=== PATIENT | female | born 1940 | race Caucasian/White ===

== ENCOUNTER 2016-10-16 20:24 | Inpatient (IN) | payer MEDICARE ==
[2016-10-16 20:54] LABS: Basophils # (A) 0.1 k/uL (0-0.2); Basophils % (A) 0 %; CH 30.9; CHCM 32.2; Eosinophils # (A) 0.2 k/uL (0-0.7); Eosinophils % (A) 1 %; HCT 41.3 % (34.0-46.0); HDW 2.62; HGB 13.2 gm/dL (11.4-16.0); Luc # (Auto) 0.08; Luc % (Auto) 0; Lymphocytes # (A) 0.6 k/uL (1.0-4.8); Lymphocytes % (A) 3 %; MCH 30.9 pg (25.0-35.0); MCV 96.6 fL (80.0-100.0); Mean Platelet Volume 7.9; Monocytes # (A) 0.5 k/uL (0-1.0); Monocytes % (A) 2 %; Neutrophils # (A) 20.3 k/uL (1.3-7.7); Neutrophils % (A) 93 %; RBC 4.27 m/uL (3.80-5.40); RDW 13.5 % (11.5-15.5); WBC 21.8 k/uL (3.8-10.6); WBC (Perox) 21.76
--- NOTE | 2016-10-16 21:02 | XR ---
EXAMINATION TYPE: XR chest 2V DATE OF EXAM: 10/16/2016 8:58 PM COMPARISON: NONE HISTORY: Chest pain TECHNIQUE: Frontal and lateral views of the chest are obtained. FINDINGS: Patient is post median sternotomy. Heart may be enlarged, patient is rotated. Interstitium and central vascularity are prominent. No pneumothorax or pleural effusion. There are overlying card iac leads. IMPRESSION: Correlate for congestive heart failure. Follow-up suggested.
[2016-10-16 21:06] LABS: Calcium 9.7 mg/dL (8.4-10.2); Total Bilirubin 0.8 mg/dL (0.2-1.3); Total Protein 7.3 g/dL (6.3-8.2)
[2016-10-16 21:09] LABS: Prothrombin Time 10.5 sec (9.0-12.0)
[2016-10-16 21:17] LABS: Magnesium 1.4 mg/dL (1.6-2.3); Potassium 4.9 mmol/L (3.5-5.1)
[2016-10-16 21:24] LABS: Partial Thromboplastin Time 20.2 sec (22.0-30.0)
--- NOTE | 2016-10-16 21:27 | ED ---
General Adult HPI - General Chief complaint: Chest Pain Stated complaint: Chest pain,fever Time Seen by Provider: 10/16/16 21:00 Source: patient, EMS, RN notes reviewed Mode of arrival: EMS Limitations: no limitations - History of Present Illness Initial comments: This is a 75-year-old female who presents emergency room complaining of chest pain with some shortness of breath nausea and states it is similar to the chest pain she had when she had a heart attack and bypass surgery years ago. Patient states she is a diabetic she is hypertensive and she has high cholesterol. Patient comes in today stating that she was outside about 4:00 she started having arm pain which is chronic and then she started developing chest pain with the associated symptoms mentioned above. Patient denies any diaphoresis. Patient states she has had slight cough recently but no sputum production. Patient states she took a nitroglycerin in the ambulance 2 and it helped the chest pain considerably. Patient states currently she only has very minimal chest pain at all. Patient denies any abdominal pain. Patient denies any vomiting or diarrhea. Patient denies headache patient denies numbness weakness. Patient denies any lightheadedness dizziness or near syncopal episode. - Related Data Home Medications Medication Instructions Recorded Confirmed Cholecalciferol [Vitamin D3] 5,000 units PO DAILY 01/06/14 10/16/16 Metoprolol Tartrate [Lopressor] 100 mg PO BID 01/06/14 10/16/16 glipiZIDE [Glucotrol XL] 10 mg PO QAM 01/06/14 10/16/16 Insulin Glargine,Hum.rec.anlog 14 unit SQ QAM 04/29/16 10/16/16 [Toujeo Solostar] Losartan [Cozaar] 50 mg PO DAILY 05/25/16 10/16/16 Nitroglycerin Sl Tabs [Nitrostat] 0.4 mg SUBLINGUAL ONCE PRN 10/16/16 10/16/16 Vitamin B Complex 1 cap PO DAILY 10/16/16 10/16/16 Previous Rx's Medication Instructions Recorded Clopidogrel [Plavix] 75 mg PO DAILY #30 tab 02/04/14 Aspirin 325 mg PO DAILY #90 tab 05/26/16 Allergies Allergy/AdvReac Type Severity Reaction Status Date / Time No Known Allergies Allergy Verified 10/16/16 20:40 Review of Systems ROS Statement: Those systems with pertinent positive or pertinent negative responses have been documented in the HPI. ROS Other: All systems not noted in ROS Statement are negative. Past Medical History Past Medical History: Coronary Artery Disease (CAD), Diabetes Mellitus, Hyperlipidemia, Hypertension, Myocardial Infarction ([place]), Vascular Disorder Additional Past Medical History / Comment(s): pt states has black eye from fall a couple weeks ago Last Myocardial Infarction Date:: 2005 History of Any Multi-Drug Resistant Organisms: None Reported Past Surgical History: Cholecystectomy, Coronary Bypass/CABG, Joint Replacement , Orthopedic Surgery Additional Past Surgical History / Comment(s): Panniculectomy. Artherectomy of the right popliteal and [employer] by Dr. Delarosa on 02/03/2014. Rt knee replacement x 2.OWEN LOWER EXT RUNOFF/NATHANIEL RT COMMON FEMORAL ARTERY ANGIOGRAM 05-25-16 .RT FEM POP Past Anesthesia/Blood Transfusion Reactions: No Reported Reaction Past Psychological History: No Psychological Hx Reported Smoking Status: Never smoker Past Alcohol Use History: None Reported Additional Past Alcohol Use History / Comment(s): .... Past Drug Use History: None Reported - Past Family History Father Additional Family Medical History / Comment(s): at age 62 due to motor vehicle accident Mother Family Medical History: No Reported History Additional Family Medical History / Comment(s): PARENTS 18 MONTHS APRT BOTH IN A MVA. MOM AT AGE 58 AND DAD WAS 62 General Exam - General Exam Comments Initial Comments: GENERAL: Patient is well-developed and well-nourished. Patient is nontoxic and well- hydrated and is in mild distress. ENT: Neck is soft and supple. No significant lymphadenopathy is noted. Oropharynx is clear. Moist mucous membranes. Neck has full range of motion without eliciting any pain. EYES: The sclera were anicteric and conjunctiva were pink and moist. Extraocular movements were intact and pupils were equal round and reactive to light. Eyelids were unremarkable. PULMONARY: Unlabored respirations. Good breath sounds bilaterally. No audible rales rhonchi or wheezing was noted. CARDIOVASCULAR: There is a regular rate and rhythm without any murmurs gallops or rubs. ABDOMEN: Soft and nontender with normal bowel sounds. No palpable organomegaly was noted. There is no palpable pulsatile mass. SKIN: Skin is clear with no lesions or rashes and otherwise unremarkable. NEUROLOGIC: Patient is alert and oriented x3. Cranial nerves II through XII are grossly intact. Motor and sensory are also intact. Normal speech, volume and content. Symmetrical smile. MUSCULOSKELETAL: Normal extremities with adequate strength and full range of motion. No lower extremity swelling or edema. No calf tenderness. LYMPHATICS: No significant lymphadenopathy is noted PSYCHIATRIC: Normal psychiatric evaluation. Normal interpersonal interactions appears functionally intact in deals appropriately with others. No signs of depression. No signs of anxiety. Limitations: no limitations Course Vital Signs 10/16/16 10/16/16 10/16/16 20:27 20:47 21:46 Temperature 98 F Pulse Rate 105 H 100 100 Respiratory 20 20 20 Rate Blood Pressure 206/92 158/83 180/78 O2 Sat by Pulse 96 97 98 Oximetry Medical Decision Making - Medical Decision Making EKG shows sinus tachycardia at 111 bpm MD interval is on a 54 QRS is 86 QT interval 312 QTC is 424. Patient's EKG shows no ST segment elevation or depression. Patient's urine showed infection/started on Levaquin. Chest x-ray showed mild congestive heart today. As to the patient on Lasix as well as place some Nitropaste on the patient. Patient's troponin was mildly elevated this in association with her past history and her clinical symptoms I decided to put the patient on heparin. I spoke with Dr. Brizuela who would be the admitting physician and he accepted the admission I wrote admitting orders I consult to cardiology - Lab Data Result diagrams: 10/16/16 20:40 10/16/16 20:40 Lab Results 10/16/16 10/16/16 10/16/16 Range/Units 20:40 20:40 20:40 WBC 21.8 H (3.8-10.6) k/uL RBC 4.27 (3.80-5.40) m/uL Hgb 13.2 (11.4-16.0) gm/dL Hct 41.3 (34.0-46.0) % MCV 96.6 (80.0-100.0) fL MCH 30.9 (25.0-35.0) pg MCHC 32.0 (31.0-37.0) g/dL RDW 13.5 (11.5-15.5) % Plt Count 193 (150-450) k/uL Neutrophils % 93 % Lymphocytes % 3 % Monocytes % 2 % Eosinophils % 1 % Basophils % 0 % Neutrophils # 20.3 H (1.3-7.7) k/uL Lymphocytes # 0.6 L (1.0-4.8) k/uL Monocytes # 0.5 (0-1.0) k/uL Eosinophils # 0.2 (0-0.7) k/uL Basophils # 0.1 (0-0.2) k/uL PT (9.0-12.0) sec INR (<1.1) APTT (22.0-30.0) sec Sodium 138 (137-145) mmol/L Potassium 4.9 (3.5-5.1) mmol/L Chloride 108 H (98-107) mmol/L Carbon Dioxide 18 L (22-30) mmol/L Anion Gap 12 mmol/L BUN 46 H (7-17) mg/dL Creatinine 1.50 H (0.52-1.04) mg/dL Est GFR (MDRD) Af Amer 41 (>60 ml/min/1.73 sqM) Est GFR (MDRD) Non-Af 34 (>60 ml/min/1.73 sqM) Glucose 232 H (74-99) mg/dL Calcium 9.7 (8.4-10.2) mg/dL Magnesium 1.4 L (1.6-2.3) mg/dL Total Bilirubin 0.8 (0.2-1.3) mg/dL AST 35 (14-36) U/L ALT 34 (9-52) U/L Alkaline Phosphatase 110 (38-126) U/L Total Creatine Kinase 54 (30-135) U/L CK-MB (CK-2) 2.0 (0.0-2.4) ng/mL CK-MB (CK-2) Rel Index 3.7 Troponin I 0.066 H* (0.000-0.034) ng/mL Total Protein 7.3 (6.3-8.2) g/dL Albumin 3.9 (3.5-5.0) g/dL Urine Color Urine Appearance (Clear) Urine pH (5.0-8.0) Ur Specific Grants (1.001-1.035) Urine Protein (Negative) Urine Glucose (UA) (Negative) Urine Ketones (Negative) Urine Blood (Negative) Urine Nitrite (Negative) Urine Bilirubin (Negative) Urine Urobilinogen (<2.0) mg/dL Ur Leukocyte Esterase (Negative) Urine RBC (0-5) /hpf Urine WBC (0-5) /hpf Urine WBC Clumps (None) /hpf Ur Squamous Epith Cells (0-4) /hpf Urine Mucus (None) /hpf 10/16/16 10/16/16 Range/Units 20:40 20:40 WBC (3.8-10.6) k/uL RBC (3.80-5.40) m/uL Hgb (11.4-16.0) gm/dL Hct (34.0-46.0) % MCV (80.0-100.0) fL MCH (25.0-35.0) pg MCHC (31.0-37.0) g/dL RDW (11.5-15.5) % Plt Count (150-450) k/uL Neutrophils % % Lymphocytes % % Monocytes % % Eosinophils % % Basophils % % Neutrophils # (1.3-7.7) k/uL Lymphocytes # (1.0-4.8) k/uL Monocytes # (0-1.0) k/uL Eosinophils # (0-0.7) k/uL Basophils # (0-0.2) k/uL PT 10.5 (9.0-12.0) sec INR 1.0 (<1.1) APTT 20.2 L (22.0-30.0) sec Sodium (137-145) mmol/L Potassium (3.5-5.1) mmol/L Chloride (98-107) mmol/L Carbon Dioxide (22-30) mmol/L Anion Gap mmol/L BUN (7-17) mg/dL Creatinine (0.52-1.04) mg/dL Est GFR (MDRD) Af Amer (>60 ml/min/1.73 sqM) Est GFR (MDRD) Non-Af (>60 ml/min/1.73 sqM) Glucose (74-99) mg/dL Calcium (8.4-10.2) mg/dL Magnesium (1.6-2.3) mg/dL Total Bilirubin (0.2-1.3) mg/dL AST (14-36) U/L ALT (9-52) U/L Alkaline Phosphatase (38-126) U/L Total Creatine Kinase (30-135) U/L CK-MB (CK-2) (0.0-2.4) ng/mL CK-MB (CK-2) Rel Index Troponin I (0.000-0.034) ng/mL Total Protein (6.3-8.2) g/dL Albumin (3.5-5.0) g/dL Urine Color Light Yellow Urine Appearance Cloudy H (Clear) Urine pH 5.0 (5.0-8.0) Ur Specific Grants 1.010 (1.001-1.035) Urine Protein Trace H (Negative) Urine Glucose (UA) 3+ H (Negative) Urine Ketones Negative (Negative) Urine Blood Small H (Negative) Urine Nitrite Negative (Negative) Urine Bilirubin Negative (Negative) Urine Urobilinogen <2.0 (<2.0) mg/dL Ur Leukocyte Esterase Moderate H (Negative) Urine RBC 38 H (0-5) /hpf Urine WBC 44 H (0-5) /hpf Urine WBC Clumps Occasional H (None) /hpf Ur Squamous Epith Cells 1 (0-4) /hpf Urine Mucus Rare H (None) /hpf Critical Care Time Critical Care Time: Yes Total Critical Care Time: 35 Disposition Clinical Impression: Unstable angina pectoris, Urinary tract infection, Pulmonary edema Disposition: ADMITTED IP TO [facility] Time of Disposition: 22:18
[2016-10-16] MEDS ORDERED: MORPHINE SULFATE 2 MG/ML SYRINGE IVP ONE (21:32)
[2016-10-16 21:51] LABS: Troponin I 0.066 ng/mL (0.000-0.034)
[2016-10-16 22:03] LABS: Appearance,Urine Cloudy (Clear); Bilirubin,Urine Negative (Negative); Glucose,Urine (UA) 3+ (Negative); Ketones,Urine Negative (Negative); Leukocyte Esterase,Urine Moderate (Negative); Mucus,Urine Rare /hpf; Nitrite,Urine Negative (Negative); Particle Count 2095; Protein,Urine Trace (Negative); RBC,Urine 38 /hpf (0-5); Squamous Epithelial Cell,Urine 1 /hpf (0-4); UA Billing (MACRO vs. MICRO) MICRO; Urobilinogen,Urine <2.0 mg/dL (<2.0); WBC,Urine 44 /hpf (0-5)
[2016-10-16] MEDS ORDERED: LEVOFLOXACIN 750MG-D5W PMX 750 MG in DEXTROSE/WATER 1 150ML.BAG IVPB STA (22:14)
[2016-10-16] MEDS ORDERED: HEPARIN SODIUM,PORCINE 5,000 UNIT/ML 1 ML VIAL IV ONE (22:15)
[2016-10-16] MEDS ORDERED: NITROGLYCERIN OINT 1 INCH/GM PACKET TOPICAL STA (22:16)
[2016-10-16] MEDS ORDERED: FUROSEMIDE 10 MG/ML 2 ML VIAL IV ONE (22:16)
[2016-10-16] MEDS ORDERED: NITROGLYCERIN SL TABS 0.4 MG TAB SUBLINGUAL PRN (22:18)
[2016-10-16] MEDS: HEPARIN SODIUM,PORCINE/D5W PMX 25,000 UNIT in DEXTROSE/WATER 1 500ML.BAG IV SCH (22:47)
[2016-10-17 00:39] LABS: Creatine Kinase MB 3.3 ng/mL (0.0-2.4); Troponin I 0.677 ng/mL (0.000-0.034)
[2016-10-17 05:10] LABS: Cholesterol 247 mg/dL (<200); HDL Cholesterol 42 mg/dL (40-60); Triglycerides 220 mg/dL (<150)
[2016-10-17] MEDS: NITROGLYCERIN OINT 1 INCH/GM PACKET TOPICAL SCH ×5 (06:06→17:09)
[2016-10-17 06:39] LABS: Creatine Kinase MB 3.5 ng/mL (0.0-2.4); Troponin I 1.21 ng/mL (0.000-0.034)
[2016-10-17 07:05] LABS: Glucose,Whole Blood 191 mg/dL (75-99)
[2016-10-17] MEDS ORDERED: FUROSEMIDE 10 MG/ML 2 ML VIAL IV SCH (08:00)
--- NOTE | 2016-10-17 08:16 | P.CRDCN ---
History of Present Illness Consult date: 10/17/16 Requesting physician: Kathe Brizuela Consult reason: chest pain Chief complaint: Chest pain History of present illness: This is a pleasant 75-year-old female who follows regularly with Dr. Delarosa in the office. She has a history of coronary artery disease with prior bypass surgery in 2006 at which time she underwent a four-vessel bypass, GAY to the LAD, saphenous vein graft to the diagonal 1, saphenous vein graft to the OM1, and saphenous vein graft to the RCA. Patient also has a significant history for PAD with prior PTCA of the mid right popliteal, patient also underwent balloon angioplasty of the ostial and proximal right anterior tibial artery in April of last year. Patient has hypertension, hyperlipidemia, diabetes, and obesity. Patient presents to the hospital with symptoms of midsternal chest pressure and heaviness with radiation to the left shoulder and down the left arm. She does state she had associated nausea and felt like she had chills. She denies any diaphoresis or shortness of breath. According to the patient, she has been experiencing intermittent chest pains which were different than what she experienced yesterday. He does state that she felt as though she had a mild fever at home prior to coming in as well. EKG on arrival here showed a sinus tachycardia with minimal ST elevation in . Chest x-ray suggested mild congestive heart failure. White blood cell count on admission 21.8, hemoglobin 13.2, potassium 4.9, BUN 46, creatinine 1.5. Magnesium level I.4. BNP 4320. Cholesterol 247, triglycerides 220, HDL 42, LDL 161. Troponins 0.066, 0.677, 1.2. Blood pressure on arrival to the emergency room 206/92, heart rate 105, afebrile. 96% on room air. Urinalysis positive for UTI. Patient was given one dose of IV Lasix in the emergency room and initiated on IV Lasix every 8 hour, she was also started on IV heparin drip, as well as IV Levaquin. Patient is also on aspirin and Nitropaste. At the time of my examination this morning, patient states she feels extremely tired, generalized achiness all over. Past Medical History Past Medical History: Coronary Artery Disease (CAD), Diabetes Mellitus, Hyperlipidemia, Hypertension, Myocardial Infarction ([place]), Vascular Disorder Additional Past Medical History / Comment(s): pt states has black eye from fall a couple weeks ago Last Myocardial Infarction Date:: 2005 History of Any Multi-Drug Resistant Organisms: None Reported Past Surgical History: Cholecystectomy, Coronary Bypass/CABG, Joint Replacement , Orthopedic Surgery Additional Past Surgical History / Comment(s): Panniculectomy. Artherectomy of the right popliteal and RAG SORTER by Dr. Delarosa on 02/03/2014. Rt knee replacement x 2.OWEN LOWER EXT RUNOFF/NATHANIEL RT COMMON FEMORAL ARTERY ANGIOGRAM 05-25-16 .RT FEM POP Past Anesthesia/Blood Transfusion Reactions: No Reported Reaction Past Psychological History: No Psychological Hx Reported Smoking Status: Never smoker Past Alcohol Use History: None Reported Additional Past Alcohol Use History / Comment(s): .... Past Drug Use History: None Reported - Past Family History Father Additional Family Medical History / Comment(s): at age 62 due to motor vehicle accident Mother Family Medical History: No Reported History Additional Family Medical History / Comment(s): PARENTS 18 MONTHS APRT BOTH IN A MVA. MOM AT AGE 58 AND DAD WAS 62 Medications and Allergies Home Medications Medication Instructions Recorded Confirmed Type Cholecalciferol [Vitamin D3] 5,000 units PO DAILY 01/06/14 10/16/16 History Metoprolol Tartrate [Lopressor] 100 mg PO BID 01/06/14 10/16/16 History glipiZIDE [Glucotrol XL] 10 mg PO QAM 01/06/14 10/16/16 History Insulin Glargine,Hum.rec.anlog 14 unit SQ QAM 04/29/16 10/16/16 History [Toujeo Solostar] Losartan [Cozaar] 50 mg PO DAILY 05/25/16 10/16/16 History Nitroglycerin Sl Tabs [Nitrostat] 0.4 mg SUBLINGUAL ONCE PRN 10/16/16 10/16/16 History Vitamin B Complex 1 cap PO DAILY 10/16/16 10/16/16 History Allergies Allergy/AdvReac Type Severity Reaction Status Date / Time No Known Allergies Allergy Verified 10/16/16 20:40 Physical Exam Vitals: Vital Signs Temp Pulse Pulse Resp BP BP Pulse Ox 10/17/16 04:00 98.0 F 92 18 133/61 98 10/17/16 00:56 98.4 F 96 18 167/80 97 10/16/16 23:33 98.4 F 96 18 167/80 97 10/16/16 22:54 97.9 F 88 20 170/87 96 Intake and Output 10/16/16 10/17/16 10/17/16 22:59 06:59 14:59 Intake Total 240 Output Total 250 Balance -10 Intake: Intake, IV Titration 240 Amount Heparin Sodium,Porcine/ 140 D5w Pmx 25,000 unit In Dextrose/Water 1 500ml. bag @ 10.1 UNITS/KG/HR 20 .15 mls/hr IV .Q24H JEANIE Rx#:[id number] Levofloxacin 750Mg-D5w 100 Pmx 750 mg In Dextrose/ Water 1 150ml.bag @ 100 mls/hr IVPB HS JEANIE Rx#: [id number] Output: Urine 250 Other: Voiding Method Bedside Commode # Voids 1 Weight 94.2 kg PHYSICAL EXAMINATION: HEENT: Head is atraumatic, normocephalic. Pupils equal, round. Neck is supple. There is no elevated jugular venous pressure. HEART EXAMINATION: Heart S1, S2 normal. No murmur or gallop heard. CHEST EXAMINATION: Clear with mild diminished air entry to posterior bases. ABDOMEN: Soft, obese, nontender. Bowel sounds are heard. No organomegaly noted. EXTREMITIES: 1+ peripheral pulses with trace evidence of peripheral edema and no calf tenderness noted. NEUROLOGIC patient is awake, alert and oriented -3. . Results 10/16/16 20:40 10/16/16 20:40 Cardiac Enzymes 10/16/16 10/17/16 Range/Units 23:30 05:23 CK-MB (CK-2) 3.3 H* 3.5 H* (0.0-2.4) ng/mL Troponin I 0.677 H* 1.210 H* (0.000-0.034) ng/mL Coagulation 10/17/16 Range/Units 05:23 APTT 48.7 H (22.0-30.0) sec Lipids 10/17/16 Range/Units 03:35 Triglycerides 220 H (<150) mg/dL Cholesterol 247 H (<200) mg/dL HDL Cholesterol 42 (40-60) mg/dL Current Medications Generic Name Dose Route Start Last Admin Trade Name Freq PRN Reason Stop Dose Admin Aspirin 325 mg 10/17/16 09:00 Aspirin PO DAILY [facility] Furosemide 20 mg 10/17/16 08:00 Lasix IV Q8HR JEANIE Levofloxacin 750 mg/ IV 150 mls @ 100 mls/hr 10/17/16 21:00 Solution IVPB HS [facility] Heparin Sodium/Dextrose 25,000 500 mls @ 20.15 mls/hr 10/16/16 22:15 22:47 unit/ IV Solution IV 10.02 units/kg/hr .Q24H JEANIE 20 mls/hr Protocol Administration 10.1 UNITS/KG/HR Nitroglycerin 1 inch 10/17/16 00:00 10/17/16 06:07 Nitro-Bid Oint TOPICAL Not Given Q6HR [facility] Nitroglycerin 0.4 mg 10/16/16 22:18 Nitrostat SUBLINGUAL Q5M PRN Chest Pain Intake and Output 10/16/16 10/17/16 10/17/16 22:59 06:59 14:59 Intake Total 240 Output Total 250 Balance -10 Intake: Intake, IV Titration 240 Amount Heparin Sodium,Porcine/ 140 D5w Pmx 25,000 unit In Dextrose/Water 1 500ml. bag @ 10.1 UNITS/KG/HR 20 .15 mls/hr IV .Q24H [facility] Rx#:[id number] Levofloxacin 750Mg-D5w 100 Pmx 750 mg In Dextrose/ Water 1 150ml.bag @ 100 mls/hr IVPB HS [facility] Rx#: [id number] Output: Urine 250 Other: Voiding Method Bedside Commode # Voids 1 Weight 94.2 kg EKG Interpretations (text) EKG shows a sinus tachycardia with minimal ST elevation in aVR. Assessment and Plan Plan: Assessment and Plan #1 non-STEMI, with associated atypical pains and headache. #2 history of coronary artery disease with prior bypass surgery in 2006 #3 PAD with prior vascular interventions #4 hypertension, accelerated #5 hyperlipidemia #6 diabetes #7 hyperlipidemia #8 UTI, afebrile, elevated white blood cell count #9 acute on chronic renal failure , creatinine 1.5 Plan We'll continue the IV heparin, along with aspirin and Nitropaste. Resume the patient's home medications which include losartan and metoprolol tartrate. Obtain echocardiogram with Doppler study. Continue IV antibiotics. Discontinue IV Lasix. Check lytes BUN and creatinine this morning. Continue maximal medical therapy at this time until her infection clears, then the patient may need to undergo cardiac catheterization. Further recommendations to follow. DNP note has been reviewed, I agree with a documented findings and plan of care. Patient was seen and examined.
[2016-10-17] MEDS: ASPIRIN 325 MG TAB PO SCH (09:17)
[2016-10-17] MEDS: METOPROLOL TARTRATE 50 MG TAB PO SCH ×2 (09:17→20:19)
[2016-10-17] MEDS: CLOPIDOGREL 75 MG TAB PO SCH (09:17)
[2016-10-17 09:19] LABS: Calcium 9.1 mg/dL (8.4-10.2); Potassium 5.5 mmol/L (3.5-5.1)
[2016-10-17] MEDS ORDERED: SODIUM POLYSTYRENE SULFONATE 15 GM/60 ML BOTTLE PO STA (09:46)
[2016-10-17] MEDS: MAGNESIUM SULFATE-D5W PMX 1 GM in DEXTROSE/WATER 1 100ML.BAG IVPB SCH ×2 (10:17→11:31)
[2016-10-17] MEDS: glipiZIDE 5 MG TAB PO SCH ×2 (10:17→16:49)
[2016-10-17] MEDS: INSULIN GLARGINE 100 UNIT/ML 10 ML VIAL SQ SCH (10:36)
[2016-10-17] MEDS: ACETAMINOPHEN TAB 325 MG TAB PO PRN ×2 (10:37→16:14)
--- NOTE | 2016-10-17 11:03 | P.HPIM ---
History of Present Illness H&P Date: 10/17/16 Chief Complaint: Chest pain This is a 75-year-old female with a known past medical history of myocardial infarction with previous coronary artery bypass grafting, hypertension, hyperlipidemia, diabetes mellitus, peripheral arterial disease requiring vascular surgery. Patient presents to the hospital with complaints of chest pain. She reports yesterday afternoon she was sitting on on her back porch watching her grandchildren play. She started having chest pain across the center of her chest. She had some sweating with chills on her back and nausea. She also reports some pain in the left arm. She had some relief in her chest pain when taking the nitro. She presented to the emergency room for further evaluation and treatment. Her EKG had shown sinus tachycardia with a heart rate of 111 and left ventricular hypertrophy. Troponins were elevated 0.066, 0.677, 1.210. She was placed on IV heparin in the emergency room. Cardiology was consulted. Chest x-ray had shown possible congestive heart failure. BNP was elevated at 4320. She received 1 dose of IV Lasix. Patient reports no shortness of breath and no swelling the legs. She also was found have evidence of a urinary tract infection. She reports having some pressure but no pain with urination. She was started on Levaquin. Cardiology has been consulted and following. They're anticipating heart catheterization in a few days. Patient is currently chest pain-free. She denies any fever, cough, vomiting or bowel movement changes. Review of Systems Please refer to HPI otherwise unremarkable Past Medical History Past Medical History: Coronary Artery Disease (CAD), Diabetes Mellitus, Hyperlipidemia, Hypertension, Myocardial Infarction (NM), Vascular Disorder Additional Past Medical History / Comment(s): pt states has black eye from fall a couple weeks ago Last Myocardial Infarction Date:: 2005 History of Any Multi-Drug Resistant Organisms: None Reported Past Surgical History: Cholecystectomy, Coronary Bypass/CABG, Joint Replacement , Orthopedic Surgery Additional Past Surgical History / Comment(s): Panniculectomy. Artherectomy of the right popliteal and GRAIN ELEVATOR OPERATOR by Dr. Delarosa on 02/03/2014. Rt knee replacement x 2.OWEN LOWER EXT RUNOFF/NATHANIEL RT COMMON FEMORAL ARTERY ANGIOGRAM 05-25-16 .RT FEM POP Past Anesthesia/Blood Transfusion Reactions: No Reported Reaction Past Psychological History: No Psychological Hx Reported Smoking Status: Never smoker Past Alcohol Use History: None Reported Additional Past Alcohol Use History / Comment(s): .... Past Drug Use History: None Reported - Past Family History Father Additional Family Medical History / Comment(s): at age 62 due to motor vehicle accident Mother Family Medical History: No Reported History Additional Family Medical History / Comment(s): PARENTS 18 MONTHS APRT BOTH IN A MVA. MOM AT AGE 58 AND DAD WAS 62 Medications and Allergies Home Medications Medication Instructions Recorded Confirmed Type Cholecalciferol [Vitamin D3] 5,000 units PO DAILY 01/06/14 10/16/16 History Metoprolol Tartrate [Lopressor] 100 mg PO BID 01/06/14 10/16/16 History glipiZIDE [Glucotrol XL] 10 mg PO QAM 01/06/14 10/16/16 History Insulin Glargine,Hum.rec.anlog 14 unit SQ QAM 04/29/16 10/16/16 History [Toujeo Solostar] Losartan [Cozaar] 50 mg PO DAILY 05/25/16 10/16/16 History Nitroglycerin Sl Tabs [Nitrostat] 0.4 mg SUBLINGUAL ONCE PRN 10/16/16 10/16/16 History Vitamin B Complex 1 cap PO DAILY 10/16/16 10/16/16 History Allergies Allergy/AdvReac Type Severity Reaction Status Date / Time No Known Allergies Allergy Verified 10/16/16 20:40 Physical Exam Vitals: Vital Signs Temp Pulse Pulse Resp BP BP BP 10/17/16 08:00 98 F 86 20 155/68 10/17/16 04:00 98.0 F 92 18 133/61 10/17/16 00:56 98.4 F 96 18 167/80 10/16/16 23:33 98.4 F 96 18 167/80 10/16/16 22:54 97.9 F 88 20 170/87 Pulse Ox 10/17/16 08:00 98 10/17/16 04:00 98 10/17/16 00:56 97 10/16/16 23:33 97 10/16/16 22:54 96 Intake and Output 10/16/16 10/17/16 10/17/16 22:59 06:59 14:59 Intake Total 240 0 Output Total 250 200 Balance -10 -200 Intake: Intake, IV Titration 240 Amount Heparin Sodium,Porcine/ 140 D5w Pmx 25,000 unit In Dextrose/Water 1 500ml. bag @ 10.1 UNITS/KG/HR 20 .15 mls/hr IV .Q24H JE[facility]IE Rx#:[id number] Levofloxacin 750Mg-D5w 100 Pmx 750 mg In Dextrose/ Water 1 150ml.bag @ 100 mls/hr IVPB HS JEANIE Rx#: [id number] Oral 0 Output: Urine 250 200 Other: Voiding Method Bedside Commode Bedside Commode # Voids 1 Weight 94.2 kg Head normocephalic Neck supple Lungs clear to auscultation bilaterally no wheezing or crackles Heart regular rate and rhythm S1-S2, no rub or gallop Abdomen is soft nontender nondistended positive bowel sounds no hepatosplenomegaly Extremities no edema Neuro alert and orientated to 3 Musculoskeletal: Pain with range of motion of the neck. Also difficulty with lifting up her left arm. Tenderness to palpation of the left shoulder. Results CBC & Chem 7: 10/16/16 20:40 10/17/16 05:23 Labs: Abnormal Lab Results - Last 24 Hours (Table) 10/16/16 10/17/16 10/17/16 Range/Units 23:30 03:35 05:23 APTT (22.0-30.0) sec Sodium (137-145) mmol/L Potassium (3.5-5.1) mmol/L Chloride (98-107) mmol/L Carbon Dioxide (22-30) mmol/L BUN (7-17) mg/dL Creatinine (0.52-1.04) mg/dL Glucose (74-99) mg/dL POC Glucose (mg/dL) (75-99) mg/dL CK-MB (CK-2) 3.3 H* 3.5 H* (0.0-2.4) ng/mL Troponin I 0.677 H* 1.210 H* (0.000-0.034) ng/mL Triglycerides 220 H (<150) mg/dL Cholesterol 247 H (<200) mg/dL LDL Cholesterol, Calc 161 H (0-99) mg/dL 10/17/16 10/17/16 10/17/16 Range/Units 05:23 05:23 06:58 APTT 48.7 H (22.0-30.0) sec Sodium 136 L (137-145) mmol/L Potassium 5.5 H (3.5-5.1) mmol/L Chloride 109 H (98-107) mmol/L Carbon Dioxide 15 L (22-30) mmol/L BUN 45 H (7-17) mg/dL Creatinine 1.58 H (0.52-1.04) mg/dL Glucose 233 H (74-99) mg/dL POC Glucose (mg/dL) 191 H (75-99) mg/dL CK-MB (CK-2) (0.0-2.4) ng/mL Troponin I (0.000-0.034) ng/mL Triglycerides (<150) mg/dL Cholesterol (<200) mg/dL LDL Cholesterol, Calc (0-99) mg/dL Thrombosis Risk Factor Assmnt - Choose All That Apply Each Risk Factor Represents 3 Points: Age 75 years or older Thrombosis Risk Factor Assessment Total Risk Factor Score: 3 Thrombosis Risk Factor Assessment Level: Moderate Risk Assessment and Plan Plan: 1. Acute non-ST elevated myocardial infarction: Troponins elevated on admission. Cardiology following. Continue IV heparin, aspirin and Plavix. Continue nitro paste. Echo pending. Possible heart catheterization in a few days when UTI infection clears. 2. Urinary tract infection: Continue Levaquin. Check urine culture 3. Acute CHF exacerbation: Awaiting echo results. Patient did receive 1 dose of IV Lasix in the ER. Patient had elevated BNP. Chest x-ray suggestive of congestive heart. Cardiology discontinued Lasix 4. Hypomagnesemia: Patient receiving magnesium supplement. Repeat magnesium level in a.m. 5. Hyperkalemia: Patient will receive Kayexalate. Repeat labs in a.m. 6. Leukocytosis likely related to UTI and possibly reactive from myocardial infarction. Repeat 30 C in a.m. And continue to monitor 7. History of myocardial infarctions and coronary artery disease with prior bypass surgery in 2006 8. PAD with prior vascular interventions 9. Neck and left shoulder pain 2 weeks. No injury or fall. We'll check cervical spine x-ray and left shoulder x-ray. Tylenol as needed for pain 10. Essential hypertension with accelerated hypertension on admission. Cardiology has restarted home blood pressure medications. Blood pressure showing improvement. 11. Acute on chronic kidney disease stage IIIB. Baseline creatinine around 1.50. Creatinine at 1.58 today likely related to Lasix. Lasix was discontinued per cardiology. Repeat labs in a.m. Monitor closely. 12. Diabetes mellitus type 2: Resume patient's Lantus and glipizide. Add sliding scale coverage with Accu-Cheks every before meals and at bedtime 13. Hyperlipidemia: Add Lipitor 14. DVT prophylaxis IV heparin and GI prophylaxis pepcid Time with Patient: Greater than 30 (Greater than 50% of the total time spent in counseling and coordination of care.I performed an examination of the patient and discussed their management with the physician Professor Of Mechanical Engineering. I have reviewed the Physician Professor Of Mechanical Engineering's notes and agree with the documented findings and plan of care)
[2016-10-17 11:27] LABS: Hemoglobin A1C 8.9 % (4.2-6.1)
[2016-10-17] MEDS: LOSARTAN 50 MG TAB PO SCH (11:32)
[2016-10-17 11:56] LABS: Glucose,Whole Blood 161 mg/dL (75-99)
[2016-10-17] MEDS: INSULIN LISPRO (humaLOG) 300 UNIT/3 ML VIAL SQ SCH ×3 (12:06→21:11)
--- NOTE | 2016-10-17 14:49 | XR ---
EXAMINATION TYPE: XR shoulder complete LT DATE OF EXAM: 10/17/2016 2:43 PM COMPARISON: NONE HISTORY: Pain TECHNIQUE: Three views are submitted. FINDINGS: Complete loss of joint space of the glenohumeral joint with remodeling of the glenoid. Arthropathy of the AC joint. IMPRESSION: 1. Severe arthropathy of the glenohumeral joint.
--- NOTE | 2016-10-17 14:50 | XR ---
EXAMINATION TYPE: XR cervical spine comp DATE OF EXAM: 10/17/2016 2:43 PM COMPARISON: NONE HISTORY: Pain TECHNIQUE: Four views are submitted. FINDINGS: The odontoid is intact. There are no compression deformities. The prevertebral soft tissue structur es are within normal limits. Calcification soft tissue the neck likely related carotid artery. Posts urgical change involving the mediastinum. There is hypertrophic change and degenerative disc disease at all levels with the most marked changes at C4-5 and C5-C6. Facet arthropathy noted at all levels with marked changes at C3-C4 and grade 1 an terolisthesis measuring approximately 2 to 3 mm. IMPRESSION: 1. Multilevel degenerative disc disease with facet arthropathy and grade 1 anterolisthesis C3 on C4. Consider MRI follow-up
--- NOTE | 2016-10-17 15:20 | US ---
EXAMINATION TYPE: US venous doppler duplex LE RT DATE OF EXAM: 10/17/2016 3:09 PM COMPARISON: Ultrasound CLINICAL HISTORY: rule out dvt. Right leg pain x 2 days, patient on blood thinners SIDE PERFORMED: Right TECHNIQUE: The lower extremity deep venous system is examined utilizing real time linear array sonog nadiya with graded compression, doppler sonography and color-flow sonography. VESSELS IMAGED: External Iliac Vein (EIV) Common Femoral Vein Deep Femoral Vein Greater Saphenous Vein * Femoral Vein Popliteal Vein Small Saphenous Vein * Proximal Calf Veins (* superficial vessels) Right Leg: Appears negative for DVT IMPRESSION: No diagnostic evidence of DVT as visualized.
[2016-10-17 17:31] LABS: Glucose,Whole Blood 57 mg/dL (75-99)
[2016-10-17 17:31] LABS: Glucose,Whole Blood 80 mg/dL (75-99)
[2016-10-17 20:50] LABS: Glucose,Whole Blood 117 mg/dL (75-99)
[2016-10-17] MEDS ORDERED: LEVOFLOXACIN 750MG-D5W PMX 750 MG in DEXTROSE/WATER 1 150ML.BAG IVPB SCH (21:00)
[2016-10-17] MEDS ORDERED: ATORVASTATIN 20 MG TAB PO SCH (21:00)
[2016-10-18] MEDS: HEPARIN SODIUM,PORCINE/D5W PMX 25,000 UNIT in DEXTROSE/WATER 1 500ML.BAG IV SCH ×2 (00:13→21:38)
[2016-10-18] MEDS: NITROGLYCERIN OINT 1 INCH/GM PACKET TOPICAL SCH ×2 (00:14→05:45)
[2016-10-18] MEDS ORDERED: hydrALAZINE HCL 20 MG/ML 1 ML VIAL IVP PRN (00:20)
[2016-10-18 06:27] LABS: Glucose,Whole Blood 116 mg/dL (75-99)
[2016-10-18] MEDS: INSULIN LISPRO (humaLOG) 300 UNIT/3 ML VIAL SQ SCH ×4 (06:30→20:59)
[2016-10-18 06:37] LABS: Basophils % (A) 0 %; CH 30.9; CHCM 33.1; Eosinophils % (A) 0 %; HCT 34.5 % (34.0-46.0); HDW 2.73; HGB 11.5 gm/dL (11.4-16.0); Luc # (Auto) 0.14; Luc % (Auto) 1; Lymphocytes # (A) 0.6 k/uL (1.0-4.8); Lymphocytes % (A) 5 %; MCH 31.2 pg (25.0-35.0); MCHC 33.2 g/dL (31.0-37.0); Mean Platelet Volume 7.7; Monocytes # (A) 0.5 k/uL (0-1.0); Monocytes % (A) 4 %; Neutrophils # (A) 11.4 k/uL (1.3-7.7); Neutrophils % (A) 90 %; RBC 3.67 m/uL (3.80-5.40); RDW 13.2 % (11.5-15.5); WBC 12.7 k/uL (3.8-10.6); WBC (Perox) 12.81
[2016-10-18] MEDS ORDERED: HEPARIN SODIUM,PORCINE 5,000 UNIT/ML 1 ML VIAL IV PRN (07:01)
[2016-10-18] MEDS: LOSARTAN 50 MG TAB PO SCH (08:22)
[2016-10-18] MEDS: ASPIRIN 325 MG TAB PO SCH (08:22)
[2016-10-18] MEDS: CLOPIDOGREL 75 MG TAB PO SCH (08:22)
[2016-10-18] MEDS: INSULIN GLARGINE 100 UNIT/ML 10 ML VIAL SQ SCH (08:23)
[2016-10-18] MEDS: FAMOTIDINE 20 MG TAB PO SCH (08:24)
[2016-10-18] MEDS: METOPROLOL TARTRATE 50 MG TAB PO SCH ×2 (08:24→21:04)
[2016-10-18] MEDS ORDERED: LEVOFLOXACIN 750MG-D5W PMX 750 MG in DEXTROSE/WATER 1 150ML.BAG IVPB SCH (09:00)
--- NOTE | 2016-10-18 10:06 | ECHOF ---
Referral Reason:chest pain MEASUREMENTS -------- HEIGHT: 157.5 cm WEIGHT: 93.9 kg BP: 155/68 RVIDd: 2.3 cm (< 3.3) IVSd: 1.4 cm (0.6 - 1.1) LVIDd: 3.9 cm (3.9 - 5.3) LVPWd: 1.2 cm (0.6 - 1.1) IVSs: 1.8 cm LVIDs: 3.1 cm LVPWs: 1.8 cm LA Diam: 3.1 cm (2.7 - 3.8) LAESV Index (A-L): 32.02 ml/m Ao Diam: 2.6 cm (2.0 - 3.7) AV Cusp: 1.9 cm (1.5 - 2.6) MV EXCURSION: 8.330 mm (> 18.000) MV EF SLOPE: 36 mm/s (70 - 150) EPSS: 1.2 cm MV E Vadim: 0.99 m/s MV DecT: 336 ms MV A Vadim: 0.95 m/s MV E/A Ratio: 1.05 RAP: 5.00 mmHg RVSP: 45.48 mmHg FINDINGS -------- Sinus rhythm. This was a technically difficult study with suboptimal views. The left ventricular size is normal. There is moderate concentric left ventricular hypertrophy. Overall left ventricular systolic function is low-normal with, an EF between 50 - 55 %. Basal inferior LV wall motion is hypokinetic. Basal inferoseptal LV wall motion is hypokinetic. The right ventricle is normal in size and function. LA is midly dilated 29-33ml/m2. The right atrium is normal in size. 1.5mg of Definity was utilized for enhancement of images Aortic valve is trileaflet and is mildly thickened. Mild mitral annular calcification present. Mild tricuspid regurgitation present. There is mild pulmonary hypertension. The right ventricular systolic pressure, as measured by Doppler, is 45.48mmHg. The pulmonic valve was not well visualized. The aortic root size is normal. The pericardium is normal. CONCLUSIONS -------- 1. Sinus rhythm. 2. The right atrium is normal in size. 3. 1.5mg of Definity was utilized for enhancement of images 4. Aortic valve is trileaflet and is mildly thickened. 5. Mild mitral annular calcification present. 6. Mild tricuspid regurgitation present. 7. There is mild pulmonary hypertension. 8. The right ventricular systolic pressure, as measured by Doppler, is 45.48mmHg. 9. The pulmonic valve was not well visualized. 10. The aortic root size is normal. 11. The pericardium is normal. 12. This was a technically difficult study with suboptimal views. 13. The left ventricular size is normal. 14. There is moderate concentric left ventricular hypertrophy. 15. Overall left ventricular systolic function is low-normal with, an EF between 50 - 55 %. 16. Basal inferior LV wall motion is hypokinetic. 17. Basal inferoseptal LV wall motion is hypokinetic. 18. The right ventricle is normal in size and function. 19. LA is midly dilated 29-33ml/m2. NEUROSCIENTIST: China Jones RDCS
[2016-10-18 12:07] LABS: Glucose,Whole Blood 200 mg/dL (75-99)
[2016-10-18] MEDS: CHOLECALCIFEROL 1,000 UNIT TAB PO SCH (12:26)
[2016-10-18] MEDS: B COMPLEX-VIT C-VIT E-ZINC 1 EACH TAB PO SCH (12:26)
[2016-10-18 13:20] LABS: Calcium 8.6 mg/dL (8.4-10.2); Magnesium 1.8 mg/dL (1.6-2.3); Potassium 3.6 mmol/L (3.5-5.1); Total Bilirubin 0.5 mg/dL (0.2-1.3); Total Protein 6.1 g/dL (6.3-8.2)
--- NOTE | 2016-10-18 14:48 | P.PN ---
Subjective Patient is doing fairly well today. No chest pain. Objective - Vital Signs Vital signs: Vital Signs Temp 97.8 F 10/18/16 12:00 Pulse 80 10/18/16 12:00 Resp 19 10/18/16 12:00 BP 135/56 10/18/16 12:00 Pulse Ox 97 10/18/16 12:00 Intake & Output 10/17/16 10/18/16 10/18/16 18:59 06:59 18:59 Intake Total 970 1520 947.598 Output Total 731 Balance 239 1520 947.598 Weight 103.2 kg 103.2 kg Intake: IV 160 480 220 0.9 240 100 Heparin Sodium,Porcine/ 160 240 120 D5w Pmx 25,000 unit In Dextrose/Water 1 500ml. bag @ 10.1 UNITS/KG/HR 20 .15 mls/hr IV .Q24H JEANIE Rx#:[id number] Intake, IV Titration 200 500 287.598 Amount Heparin Sodium,Porcine/ 500 137.598 D5w Pmx 25,000 unit In Dextrose/Water 1 500ml. bag @ 10.1 UNITS/KG/HR 20 .15 mls/hr IV .Q24H JEANIE Rx#:[id number] Levofloxacin 750Mg-D5w 150 Pmx 750 mg In Dextrose/ Water 1 150ml.bag @ 100 mls/hr IVPB Q48H JEANIE Rx#: [id number] Magnesium Sulfate-D5w Pmx 200 1 gm In Dextrose/Water 1 100ml.bag @ 100 mls/hr IVPB Q1H JEANIE Rx#: [id number] Oral 610 540 440 Output: Urine 700 Post Void Residual 31 Other: Voiding Method Bedside Commode Bedside Commode Bedside Commode # Voids 1 3 - Exam General: The patient is awake and alert, in no distress Eye: there is normal conjunctiva bilaterally. Neck: The neck is supple, there is no JVD. Cardiovascular: Normal S1-S2, no S3-S4, no murmurs. Respiratory: Lungs clear to auscultation bilaterally Gastrointestinal: Abdomen is soft, nontender Musculoskeletal: There is no pedal edema. Neurological:. Speech is normal. Skin: Skin is warm and dry - Labs CBC & Chem 7: 10/18/16 05:56 10/18/16 05:56 Labs: Abnormal Lab Results - Last 24 Hours (Table) 10/17/16 10/17/16 10/18/16 Range/Units 16:47 20:49 05:56 WBC 12.7 H (3.8-10.6) k/uL RBC 3.67 L (3.80-5.40) m/uL Neutrophils # 11.4 H (1.3-7.7) k/uL Lymphocytes # 0.6 L (1.0-4.8) k/uL APTT (22.0-30.0) sec Carbon Dioxide (22-30) mmol/L BUN (7-17) mg/dL Creatinine (0.52-1.04) mg/dL POC Glucose (mg/dL) 57 L 117 H (75-99) mg/dL AST (14-36) U/L Total Protein (6.3-8.2) g/dL Albumin (3.5-5.0) g/dL 10/18/16 10/18/16 10/18/16 Range/Units 05:56 05:56 06:26 WBC (3.8-10.6) k/uL RBC (3.80-5.40) m/uL Neutrophils # (1.3-7.7) k/uL Lymphocytes # (1.0-4.8) k/uL APTT 40.8 H (22.0-30.0) sec Carbon Dioxide 20 L (22-30) mmol/L BUN 43 H (7-17) mg/dL Creatinine 1.56 H (0.52-1.04) mg/dL POC Glucose (mg/dL) 116 H (75-99) mg/dL AST 37 H (14-36) U/L Total Protein 6.1 L (6.3-8.2) g/dL Albumin 3.0 L (3.5-5.0) g/dL 10/18/16 10/18/16 Range/Units 11:47 13:51 WBC (3.8-10.6) k/uL RBC (3.80-5.40) m/uL Neutrophils # (1.3-7.7) k/uL Lymphocytes # (1.0-4.8) k/uL APTT 55.5 H (22.0-30.0) sec Carbon Dioxide (22-30) mmol/L BUN (7-17) mg/dL Creatinine (0.52-1.04) mg/dL POC Glucose (mg/dL) 200 H (75-99) mg/dL AST (14-36) U/L Total Protein (6.3-8.2) g/dL Albumin (3.5-5.0) g/dL Microbiology - Last 24 Hours (Table) 10/17/16 15:50 Urine Culture - Preliminary Urine,Voided Assessment and Plan Plan: 1. Non-ST elevation IN: seen and evaluated by cardiology. Continue medical management. Echocardiogram showed preserved ejection fraction and no significant wall motion abnormality. 2. Paroxysmal atrial fibrillation: no onset atrial fibrillation. Currently on IV heparin. We will check thyroid function test. 3. Coronary artery disease with history of bypass surgery in 2006 4. Uncontrolled type 2 diabetes mellitus: patient reported compliance at home. We will continue insulin regimen. We will monitor closely. 5. 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 Mixed hyperlipidemia: not at goal. Patient was unable to tolerate statin in the past. I would start Zetia 10 mg daily 7. Essential hypertension: Blood pressure not well controlled. I would discontinue as needed IV hydralazine and monitor blood pressure closely Today, I reviewed her medication list and lab work results. Continue current regimen. Appreciate cardiology recommendations. Repeat lab work in the morning.
--- NOTE | 2016-10-18 15:04 | P.PN ---
Subjective Principal diagnosis: Non-Q-wave UT This is a pleasant 75-year-old female who follows with Dr. Delarosa in the office. She does have a known history of coronary artery disease with prior bypass surgery, significant peripheral arterial disease with prior procedures, I pretension, hyperlipidemia, she presented to the hospital with symptoms of midsternal chest pressure and heaviness with radiation to the left shoulder and underneath the left arm. She ruled in for non-Q-wave myocardial infarction. Patient was also found to have TIA for which she is receiving antibiotics. Today the patient's main complaint is that of nausea which could be secondary to the antibiotics. She denies any chest pain, overall her breathing has been stable. Echocardiogram with Doppler study was performed which revealed an ejection fraction of 50-55% with basal inferior and basal inferior septal hypokinesia. Patient has been informed that she will need to undergo cardiac catheterization, and possibly plan for . She has remained afebrile through the night. She was also noted to have runs of paroxysmal atrial fibrillation, this appears to be new for her. Objective - Vital Signs Vital signs: Vital Signs Temp 97.8 F 10/18/16 12:00 Pulse 80 10/18/16 12:00 Resp 19 10/18/16 12:00 BP 135/56 10/18/16 12:00 Pulse Ox 97 10/18/16 12:00 Intake & Output 10/17/16 10/18/16 10/18/16 18:59 06:59 18:59 Intake Total 970 1520 947.598 Output Total 731 Balance 239 1520 947.598 Weight 103.2 kg 103.2 kg Intake: IV 160 480 220 0.9 240 100 Heparin Sodium,Porcine/ 160 240 120 D5w Pmx 25,000 unit In Dextrose/Water 1 500ml. bag @ 10.1 UNITS/KG/HR 20 .15 mls/hr IV .Q24H [facility] Rx#:[id number] Intake, IV Titration 200 500 287.598 Amount Heparin Sodium,Porcine/ 500 137.598 D5w Pmx 25,000 unit In Dextrose/Water 1 500ml. bag @ 10.1 UNITS/KG/HR 20 .15 mls/hr IV .Q24H JE[facility]IE Rx#:[id number] Levofloxacin 750Mg-D5w 150 Pmx 750 mg In Dextrose/ Water 1 150ml.bag @ 100 mls/hr IVPB Q48H JEANIE Rx#: [id number] Magnesium Sulfate-D5w Pmx 200 1 gm In Dextrose/Water 1 100ml.bag @ 100 mls/hr IVPB Q1H JEANIE Rx#: [id number] Oral 610 540 440 Output: Urine 700 Post Void Residual 31 Other: Voiding Method Bedside Commode Bedside Commode Bedside Commode # Voids 1 3 - Exam PHYSICAL EXAMINATION: HEENT: [Head is atraumatic, normocephalic. Pupils equal, round. Neck is supple. There is no elevated jugular venous pressure.] HEART EXAMINATION: [Heart S1, S2 normal. No murmur or gallop heard.] CHEST EXAMINATION:[ Lungs are clear to auscultation and precussion. No chest wall tenderness is noted on palpation or with deep breathing.] ABDOMEN: [ Soft, nontender. Bowel sounds are heard. No organomegaly noted]. EXTREMITIES:[ 2+ peripheral pulses with no evidence of peripheral edema and no calf tenderness noted]. NEUROLOGIC [patient is awake, alert and oriented -3.] . - Labs CBC & Chem 7: 10/18/16 05:56 10/18/16 05:56 Labs: Abnormal Lab Results - Last 24 Hours (Table) 10/17/16 10/17/16 10/18/16 Range/Units 16:47 20:49 05:56 WBC 12.7 H (3.8-10.6) k/uL RBC 3.67 L (3.80-5.40) m/uL Neutrophils # 11.4 H (1.3-7.7) k/uL Lymphocytes # 0.6 L (1.0-4.8) k/uL APTT (22.0-30.0) sec Carbon Dioxide (22-30) mmol/L BUN (7-17) mg/dL Creatinine (0.52-1.04) mg/dL POC Glucose (mg/dL) 57 L 117 H (75-99) mg/dL AST (14-36) U/L Total Protein (6.3-8.2) g/dL Albumin (3.5-5.0) g/dL 10/18/16 10/18/16 10/18/16 Range/Units 05:56 05:56 06:26 WBC (3.8-10.6) k/uL RBC (3.80-5.40) m/uL Neutrophils # (1.3-7.7) k/uL Lymphocytes # (1.0-4.8) k/uL APTT 40.8 H (22.0-30.0) sec Carbon Dioxide 20 L (22-30) mmol/L BUN 43 H (7-17) mg/dL Creatinine 1.56 H (0.52-1.04) mg/dL POC Glucose (mg/dL) 116 H (75-99) mg/dL AST 37 H (14-36) U/L Total Protein 6.1 L (6.3-8.2) g/dL Albumin 3.0 L (3.5-5.0) g/dL 10/18/16 10/18/16 Range/Units 11:47 13:51 WBC (3.8-10.6) k/uL RBC (3.80-5.40) m/uL Neutrophils # (1.3-7.7) k/uL Lymphocytes # (1.0-4.8) k/uL APTT 55.5 H (22.0-30.0) sec Carbon Dioxide (22-30) mmol/L BUN (7-17) mg/dL Creatinine (0.52-1.04) mg/dL POC Glucose (mg/dL) 200 H (75-99) mg/dL AST (14-36) U/L Total Protein (6.3-8.2) g/dL Albumin (3.5-5.0) g/dL Microbiology - Last 24 Hours (Table) 10/17/16 15:50 Urine Culture - Preliminary Urine,Voided Assessment and Plan Plan: Assessment and Plan #1 non-STEMI #2 history of coronary artery disease with prior bypass surgery in 2006 #3 PAD with prior vascular interventions #4 hypertension, accelerated #5 hyperlipidemia #6 diabetes #7 hyperlipidemia #8 UTI, afebrile, on IV antibiotics. #9 acute on chronic renal failure , creatinine 1.5 #10 paroxysmal atrial fibrillation Plan We'll continue IV heparin, check lytes BUN and creatinine in the morning, see how the patient feels in the next 24 hours, plan on possible cardiac catheterization on . Because of the paroxysmal atrial fibrillation, patient will require initiation of anticoagulation prior to discharge. DNP note has been reviewed, I agree with a documented findings and plan of care. Patient was seen and examined.
[2016-10-18 17:03] LABS: Glucose,Whole Blood 109 mg/dL (75-99)
[2016-10-18 20:57] LABS: Glucose,Whole Blood 92 mg/dL (75-99)
[2016-10-19 06:18] LABS: Glucose,Whole Blood 126 mg/dL (75-99)
[2016-10-19 06:38] LABS: Basophils % (A) 0 %; CH 30.9; CHCM 32.9; Eosinophils # (A) 0.1 k/uL (0-0.7); Eosinophils % (A) 1 %; HCT 30.2 % (34.0-46.0); HGB 10.2 gm/dL (11.4-16.0); Luc # (Auto) 0.21; Luc % (Auto) 3; Lymphocytes # (A) 1.1 k/uL (1.0-4.8); Lymphocytes % (A) 13 %; MCH 31.8 pg (25.0-35.0); MCHC 33.7 g/dL (31.0-37.0); MCV 94.4 fL (80.0-100.0); Mean Platelet Volume 8.1; Monocytes # (A) 0.5 k/uL (0-1.0); Monocytes % (A) 5 %; Neutrophils # (A) 6.6 k/uL (1.3-7.7); Neutrophils % (A) 78 %; RDW 13.3 % (11.5-15.5); WBC 8.5 k/uL (3.8-10.6)
[2016-10-19] MEDS: INSULIN LISPRO (humaLOG) 300 UNIT/3 ML VIAL SQ SCH ×4 (06:44→21:05)
[2016-10-19 07:13] LABS: Calcium 8.2 mg/dL (8.4-10.2); Potassium 3.8 mmol/L (3.5-5.1); Total Bilirubin 0.6 mg/dL (0.2-1.3); Total Protein 5.8 g/dL (6.3-8.2)
[2016-10-19] MEDS: CLOPIDOGREL 75 MG TAB PO SCH (08:12)
[2016-10-19] MEDS: ASPIRIN 325 MG TAB PO SCH (08:12)
[2016-10-19] MEDS: FAMOTIDINE 20 MG TAB PO SCH (08:12)
[2016-10-19] MEDS: METOPROLOL TARTRATE 50 MG TAB PO SCH ×2 (08:12→20:36)
[2016-10-19] MEDS: LOSARTAN 50 MG TAB PO SCH (08:13)
[2016-10-19] MEDS: INSULIN GLARGINE 100 UNIT/ML 10 ML VIAL SQ SCH (08:13)
[2016-10-19] MEDS: CHOLECALCIFEROL 1,000 UNIT TAB PO SCH (11:03)
[2016-10-19] MEDS: B COMPLEX-VIT C-VIT E-ZINC 1 EACH TAB PO SCH (11:03)
--- NOTE | 2016-10-19 11:34 | P.PN ---
Subjective Patient is doing well today. She was up walking the hallway using her walker with her family. She denies chest pain. Objective - Vital Signs Vital signs: Vital Signs Temp 98.3 F 10/19/16 08:00 Pulse 89 10/19/16 08:00 Resp 18 10/19/16 08:00 BP 144/69 10/19/16 08:00 Pulse Ox 94 L 10/19/16 08:00 Intake & Output 10/18/16 10/19/16 10/19/16 18:59 06:59 18:59 Intake Total 1187.598 348.509 100 Output Total 200 Balance 1187.598 348.509 -100 Weight 103.2 kg 103.9 kg 103.9 kg Intake: IV 220 0.9 100 Heparin Sodium,Porcine/ 120 D5w Pmx 25,000 unit In Dextrose/Water 1 500ml. bag @ 10.1 UNITS/KG/HR 20 .15 mls/hr IV .Q24H [facility] Rx#:[id number] Intake, IV Titration 287.598 348.509 Amount Heparin Sodium,Porcine/ 137.598 348.509 D5w Pmx 25,000 unit In Dextrose/Water 1 500ml. bag @ 10.1 UNITS/KG/HR 20 .15 mls/hr IV .Q24H [facility] Rx#:[id number] Levofloxacin 750Mg-D5w 150 Pmx 750 mg In Dextrose/ Water 1 150ml.bag @ 100 mls/hr IVPB Q48H [facility] Rx#: [id number] Oral 680 100 Output: Urine 200 Other: Voiding Method Bedside Commode Toilet Toilet Bedside Commode Bedside Commode # Voids 3 2 2 # Bowel Movements 0 - Exam General: The patient is awake and alert, in no distress Eye: there is normal conjunctiva bilaterally. Neck: The neck is supple, there is no JVD. Cardiovascular: Normal S1-S2, no S3-S4, no murmurs. Respiratory: Lungs clear to auscultation bilaterally Gastrointestinal: Abdomen is soft, nontender Musculoskeletal: There is no pedal edema. Neurological:. Speech is normal. Skin: Skin is warm and dry - Labs CBC & Chem 7: 10/19/16 06:12 10/19/16 06:12 Labs: Abnormal Lab Results - Last 24 Hours (Table) 10/18/16 10/18/16 10/18/16 Range/Units 05:56 11:47 13:51 RBC (3.80-5.40) m/uL Hgb (11.4-16.0) gm/dL Hct (34.0-46.0) % APTT 55.5 H (22.0-30.0) sec Carbon Dioxide 20 L (22-30) mmol/L BUN 43 H (7-17) mg/dL Creatinine 1.56 H (0.52-1.04) mg/dL Glucose (74-99) mg/dL POC Glucose (mg/dL) 200 H (75-99) mg/dL Calcium (8.4-10.2) mg/dL AST 37 H (14-36) U/L Total Protein 6.1 L (6.3-8.2) g/dL Albumin 3.0 L (3.5-5.0) g/dL 10/18/16 10/19/16 10/19/16 Range/Units 16:59 06:12 06:12 RBC 3.20 L (3.80-5.40) m/uL Hgb 10.2 L (11.4-16.0) gm/dL Hct 30.2 L (34.0-46.0) % APTT (22.0-30.0) sec Carbon Dioxide (22-30) mmol/L BUN 52 H (7-17) mg/dL Creatinine 1.89 H (0.52-1.04) mg/dL Glucose 118 H (74-99) mg/dL POC Glucose (mg/dL) 109 H (75-99) mg/dL Calcium 8.2 L (8.4-10.2) mg/dL AST 45 H (14-36) U/L Total Protein 5.8 L (6.3-8.2) g/dL Albumin 2.9 L (3.5-5.0) g/dL 10/19/16 10/19/16 Range/Units 06:12 06:17 RBC (3.80-5.40) m/uL Hgb (11.4-16.0) gm/dL Hct (34.0-46.0) % APTT 51.1 H (22.0-30.0) sec Carbon Dioxide (22-30) mmol/L BUN (7-17) mg/dL Creatinine (0.52-1.04) mg/dL Glucose (74-99) mg/dL POC Glucose (mg/dL) 126 H (75-99) mg/dL Calcium (8.4-10.2) mg/dL AST (14-36) U/L Total Protein (6.3-8.2) g/dL Albumin (3.5-5.0) g/dL Microbiology - Last 24 Hours (Table) 10/17/16 15:50 Urine Culture - Final Urine,Voided Assessment and Plan Plan: 1. Non-ST elevation [place]: seen and evaluated by cardiology. Continue medical management. Echocardiogram showed preserved ejection fraction and no significant wall motion abnormality. Plan for left heart catheterization on 2. Paroxysmal atrial fibrillation: no onset atrial fibrillation. Currently on IV heparin. Would switch to oral anticoagulation prior to discharge. 3. Coronary artery disease with history of bypass surgery in 2006 4. Uncontrolled type 2 diabetes mellitus: patient reported compliance at home. We will continue current insulin regimen. Blood glucose within acceptable range 5. 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 Mixed hyperlipidemia: not at goal. Patient was unable to tolerate statin in the past. I would start Zetia 10 mg daily 7. Essential hypertension: Blood pressure better controlled. Today, I reviewed her medication list and lab work results. Continue current regimen. Appreciate cardiology recommendations. Repeat lab work in the morning.
[2016-10-19 11:42] LABS: Glucose,Whole Blood 230 mg/dL (75-99)
[2016-10-19] MEDS: EZETIMIBE 10 MG TAB PO SCH (12:27)
[2016-10-19] MEDS ORDERED: SODIUM CHLORIDE 0.9% 1,000 ML in EMPTY BAG 1 BAG IV ONE (14:16)
[2016-10-19] MEDS ORDERED: NITROGLYCERIN SL TABS 0.4 MG TAB SUBLINGUAL PRN (14:16)
[2016-10-19] MEDS ORDERED: ALPRAZolam 0.25 MG TAB PO PRN (14:16)
[2016-10-19] MEDS ORDERED: ASPIRIN 325 MG TAB PO STA (14:16)
[2016-10-19] MEDS ORDERED: ALPRAZolam 0.5 MG TAB PO PRN (14:16)
[2016-10-19] MEDS ORDERED: ATORVASTATIN 80 MG TAB PO STA (14:16)
--- NOTE | 2016-10-19 14:44 | P.PN ---
Subjective Principal diagnosis: Non-Q-wave [place] This is a pleasant 75-year-old female who follows with Dr. Delarosa in the office. She does have a known history of coronary artery disease with prior bypass surgery, significant peripheral arterial disease with prior procedures, I pretension, hyperlipidemia, she presented to the hospital with symptoms of midsternal chest pressure and heaviness with radiation to the left shoulder and underneath the left arm. She ruled in for non-Q-wave myocardial infarction. Patient was also found to have TIA for which she is receiving antibiotics. Today the patient's main complaint is that of nausea which could be secondary to the antibiotics. She denies any chest pain, overall her breathing has been stable. Echocardiogram with Doppler study was performed which revealed an ejection fraction of 50-55% with basal inferior and basal inferior septal hypokinesia. Patient has been informed that she will need to undergo cardiac catheterization, and this will be performed on Monday by Dr. Delarosa. Creatinine today is 1.8, we will hold the patient's Cozaar, give IV fluids at 75 an hour, check lytes BUN and creatinine in the morning. Objective - Vital Signs Vital signs: Vital Signs Temp 98.1 F 10/19/16 11:32 Pulse 84 10/19/16 11:32 Resp 18 10/19/16 11:32 BP 132/66 10/19/16 11:32 Pulse Ox 94 L 10/19/16 11:32 Intake & Output 10/18/16 10/19/16 10/19/16 18:59 06:59 18:59 Intake Total 1187.598 435.860 2393 Output Total 200 Balance 1187.598 348.509 880 Weight 103.2 kg 103.9 kg 103.9 kg Intake: IV 220 240 0.9 100 100 Heparin Sodium,Porcine/ 120 140 D5w Pmx 25,000 unit In Dextrose/Water 1 500ml. bag @ 10.1 UNITS/KG/HR 20 .15 mls/hr IV .Q24H [facility] Rx#:[id number] Intake, IV Titration 287.598 348.509 Amount Heparin Sodium,Porcine/ 137.598 348.509 D5w Pmx 25,000 unit In Dextrose/Water 1 500ml. bag @ 10.1 UNITS/KG/HR 20 .15 mls/hr IV .Q24H [facility] Rx#:[id number] Levofloxacin 750Mg-D5w 150 Pmx 750 mg In Dextrose/ Water 1 150ml.bag @ 100 mls/hr IVPB Q48H [facility] Rx#: [id number] Oral 680 840 Output: Urine 200 Other: Voiding Method Bedside Commode Toilet Toilet Bedside Commode Bedside Commode # Voids 3 2 2 # Bowel Movements 0 - Exam PHYSICAL EXAMINATION: HEENT: [Head is atraumatic, normocephalic. Pupils equal, round. Neck is supple. There is no elevated jugular venous pressure.] HEART EXAMINATION: [Heart S1, S2 normal. No murmur or gallop heard.] CHEST EXAMINATION:[ Lungs are clear to auscultation and precussion. No chest wall tenderness is noted on palpation or with deep breathing.] ABDOMEN: [ Soft, nontender. Bowel sounds are heard. No organomegaly noted]. EXTREMITIES:[ 2+ peripheral pulses with no evidence of peripheral edema and no calf tenderness noted]. NEUROLOGIC [patient is awake, alert and oriented -3.] . - Labs CBC & Chem 7: 10/19/16 06:12 10/19/16 06:12 Labs: Abnormal Lab Results - Last 24 Hours (Table) 10/18/16 10/19/16 10/19/16 Range/Units 16:59 06:12 06:12 RBC 3.20 L (3.80-5.40) m/uL Hgb 10.2 L (11.4-16.0) gm/dL Hct 30.2 L (34.0-46.0) % APTT (22.0-30.0) sec BUN 52 H (7-17) mg/dL Creatinine 1.89 H (0.52-1.04) mg/dL Glucose 118 H (74-99) mg/dL POC Glucose (mg/dL) 109 H (75-99) mg/dL Calcium 8.2 L (8.4-10.2) mg/dL AST 45 H (14-36) U/L Total Protein 5.8 L (6.3-8.2) g/dL Albumin 2.9 L (3.5-5.0) g/dL 10/19/16 10/19/16 10/19/16 Range/Units 06:12 06:17 11:40 RBC (3.80-5.40) m/uL Hgb (11.4-16.0) gm/dL Hct (34.0-46.0) % APTT 51.1 H (22.0-30.0) sec BUN (7-17) mg/dL Creatinine (0.52-1.04) mg/dL Glucose (74-99) mg/dL POC Glucose (mg/dL) 126 H 230 H (75-99) mg/dL Calcium (8.4-10.2) mg/dL AST (14-36) U/L Total Protein (6.3-8.2) g/dL Albumin (3.5-5.0) g/dL Microbiology - Last 24 Hours (Table) 10/17/16 15:50 Urine Culture - Final Urine,Voided Assessment and Plan Plan: Assessment and Plan #1 non-STEMI #2 history of coronary artery disease with prior bypass surgery in 2006 #3 PAD with prior vascular interventions #4 hypertension, accelerated #5 hyperlipidemia #6 diabetes #7 hyperlipidemia #8 UTI, afebrile, on IV antibiotics. #9 acute on chronic renal failure , creatinine 1.8 #10 paroxysmal atrial fibrillation Plan Creatinine today is 1.8, we will hold the patient's Cozaar, give IV fluids at 75 mL an hour. Patient will be scheduled to undergo cardiac catheterization on Monday by Dr. Delarosa. The risks and the benefits were explained to the patient in detail. DNP note has been reviewed, I agree with a documented findings and plan of care. Patient was seen and examined.
[2016-10-19] MEDS: SODIUM CHLORIDE 0.9% 1,000 ML IV SCH (14:51)
[2016-10-19 17:07] LABS: Glucose,Whole Blood 113 mg/dL (75-99)
[2016-10-19] MEDS: ACETAMINOPHEN TAB 325 MG TAB PO PRN (20:36)
[2016-10-19] MEDS: HEPARIN SODIUM,PORCINE/D5W PMX 25,000 UNIT in DEXTROSE/WATER 1 500ML.BAG IV SCH (20:37)
[2016-10-19 20:49] LABS: Glucose,Whole Blood 167 mg/dL (75-99)
[2016-10-20] MEDS: ACETAMINOPHEN TAB 325 MG TAB PO PRN ×2 (04:34→23:00)
[2016-10-20] MEDS: SODIUM CHLORIDE 0.9% 1,000 ML IV SCH ×2 (04:40→12:07)
[2016-10-20 06:31] LABS: Basophils % (A) 0 %; CH 30.5; CHCM 31.6; Eosinophils # (A) 0.1 k/uL (0-0.7); Eosinophils % (A) 2 %; HGB 8.8 gm/dL (11.4-16.0); Hypochromasia Slight; Luc # (Auto) 0.17; Luc % (Auto) 3; Lymphocytes # (A) 1.2 k/uL (1.0-4.8); Lymphocytes % (A) 19 %; MCH 30.4 pg (25.0-35.0); MCHC 31.3 g/dL (31.0-37.0); MCV 97.2 fL (80.0-100.0); Mean Platelet Volume 8.3; Monocytes # (A) 0.4 k/uL (0-1.0); Monocytes % (A) 6 %; Neutrophils # (A) 4.6 k/uL (1.3-7.7); Neutrophils % (A) 70 %; RBC 2.88 m/uL (3.80-5.40); RDW 13.5 % (11.5-15.5); WBC 6.5 k/uL (3.8-10.6); WBC (Perox) 7.01
[2016-10-20 06:41] LABS: Glucose,Whole Blood 174 mg/dL (75-99)
[2016-10-20 06:56] LABS: Calcium 7.6 mg/dL (8.4-10.2); Potassium 3.7 mmol/L (3.5-5.1); Total Bilirubin 0.5 mg/dL (0.2-1.3); Total Protein 5.2 g/dL (6.3-8.2)
[2016-10-20] MEDS: INSULIN LISPRO (humaLOG) 300 UNIT/3 ML VIAL SQ SCH ×4 (07:28→21:13)
[2016-10-20] MEDS: LEVOFLOXACIN 750 MG TAB PO SCH (07:49)
[2016-10-20] MEDS: FAMOTIDINE 20 MG TAB PO SCH (07:49)
[2016-10-20] MEDS: ASPIRIN 325 MG TAB PO SCH (07:49)
[2016-10-20] MEDS: EZETIMIBE 10 MG TAB PO SCH (07:49)
[2016-10-20] MEDS: CLOPIDOGREL 75 MG TAB PO SCH (07:49)
[2016-10-20] MEDS: METOPROLOL TARTRATE 50 MG TAB PO SCH ×2 (07:50→21:12)
[2016-10-20] MEDS: INSULIN GLARGINE 100 UNIT/ML 10 ML VIAL SQ SCH (07:56)
[2016-10-20] MEDS ORDERED: NITROGLYCERIN SL TABS 0.4 MG TAB SUBLINGUAL PRN (10:47)
[2016-10-20] MEDS ORDERED: ALPRAZolam 0.5 MG TAB PO PRN (10:47)
[2016-10-20] MEDS ORDERED: SODIUM CHLORIDE 0.9% 1,000 ML in EMPTY BAG 1 BAG IV ONE (10:47)
[2016-10-20] MEDS ORDERED: POTASSIUM CHLORIDE ER 20 MEQ TAB.ER PO STA (10:58)
--- NOTE | 2016-10-20 11:01 | P.PN ---
Subjective Patient is doing well today. No events overnight. Awaiting left heart catheterization in the morning. Objective - Vital Signs Vital signs: Vital Signs Temp 97.3 F L 10/20/16 07:39 Pulse 77 10/20/16 07:39 Resp 18 10/20/16 07:39 BP 144/99 10/20/16 07:39 Pulse Ox 98 10/20/16 07:39 Intake & Output 10/19/16 10/20/16 10/20/16 18:59 06:59 18:59 Intake Total 1820 245.795 118 Output Total 200 Balance 1620 245.795 118 Weight 103.9 kg 105.9 kg Intake: IV 240 0.9 100 Heparin Sodium,Porcine/ 140 D5w Pmx 25,000 unit In Dextrose/Water 1 500ml. bag @ 10.1 UNITS/KG/HR 20 .15 mls/hr IV .Q24H [facility] Rx#:[id number] Intake, IV Titration 500 245.795 Amount Heparin Sodium,Porcine/ 500 245.795 D5w Pmx 25,000 unit In Dextrose/Water 1 500ml. bag @ 10.1 UNITS/KG/HR 20 .15 mls/hr IV .Q24H [facility] Rx#:[id number] Oral 1080 118 Output: Urine 200 Other: Voiding Method Toilet Toilet Toilet Bedside Commode # Voids 2 2 - Exam General: The patient is awake and alert, in no distress Eye: there is normal conjunctiva bilaterally. Neck: The neck is supple, there is no JVD. Cardiovascular: Normal S1-S2, no S3-S4, no murmurs. Respiratory: Lungs clear to auscultation bilaterally Gastrointestinal: Abdomen is soft, nontender Musculoskeletal: There is no pedal edema. Neurological:. Speech is normal. Skin: Skin is warm and dry - Labs CBC & Chem 7: 10/20/16 05:42 10/20/16 05:42 Labs: Abnormal Lab Results - Last 24 Hours (Table) 10/19/16 10/19/16 10/19/16 Range/Units 11:40 17:05 20:48 RBC (3.80-5.40) m/uL Hgb (11.4-16.0) gm/dL Hct (34.0-46.0) % Plt Count (150-450) k/uL APTT (22.0-30.0) sec Chloride (98-107) mmol/L Carbon Dioxide (22-30) mmol/L BUN (7-17) mg/dL Creatinine (0.52-1.04) mg/dL Glucose (74-99) mg/dL POC Glucose (mg/dL) 230 H 113 H 167 H (75-99) mg/dL Calcium (8.4-10.2) mg/dL Total Protein (6.3-8.2) g/dL Albumin (3.5-5.0) g/dL 10/20/16 10/20/16 10/20/16 Range/Units 05:42 05:42 05:42 RBC 2.88 L (3.80-5.40) m/uL Hgb 8.8 L (11.4-16.0) gm/dL Hct 28.0 L (34.0-46.0) % Plt Count 143 L (150-450) k/uL APTT 59.2 H (22.0-30.0) sec Chloride 111 H (98-107) mmol/L Carbon Dioxide 18 L (22-30) mmol/L BUN 58 H (7-17) mg/dL Creatinine 1.84 H (0.52-1.04) mg/dL Glucose 164 H (74-99) mg/dL POC Glucose (mg/dL) (75-99) mg/dL Calcium 7.6 L (8.4-10.2) mg/dL Total Protein 5.2 L (6.3-8.2) g/dL Albumin 2.6 L (3.5-5.0) g/dL 10/20/16 Range/Units 06:40 RBC (3.80-5.40) m/uL Hgb (11.4-16.0) gm/dL Hct (34.0-46.0) % Plt Count (150-450) k/uL APTT (22.0-30.0) sec Chloride (98-107) mmol/L Carbon Dioxide (22-30) mmol/L BUN (7-17) mg/dL Creatinine (0.52-1.04) mg/dL Glucose (74-99) mg/dL POC Glucose (mg/dL) 174 H (75-99) mg/dL Calcium (8.4-10.2) mg/dL Total Protein (6.3-8.2) g/dL Albumin (3.5-5.0) g/dL Assessment and Plan Plan: 1. Non-ST elevation [place]: seen and evaluated by cardiology. Continue medical management. Echocardiogram showed preserved ejection fraction and no significant wall motion abnormality. Plan for left heart catheterization tomorrow 2. Paroxysmal atrial fibrillation: no onset atrial fibrillation. Currently on IV heparin. Would switch to oral anticoagulation prior to discharge. 3. Coronary artery disease with history of bypass surgery in 2006 4. Uncontrolled type 2 diabetes mellitus: patient reported compliance at home. We will continue current insulin regimen. Blood glucose within acceptable range 5. 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 Mixed hyperlipidemia: not at goal. Patient was unable to tolerate statin in the past. I would start Zetia 10 mg daily 7. Essential hypertension: Blood pressure better controlled. Today, I reviewed her medication list and lab work results. Continue current regimen. Appreciate cardiology recommendations. Repeat lab work in the morning.
[2016-10-20 11:26] LABS: Glucose,Whole Blood 223 mg/dL (75-99)
--- NOTE | 2016-10-20 12:22 | P.PN ---
Subjective Principal diagnosis: Non-Q-wave [place] This is a pleasant 75-year-old female who follows with Dr. Delarosa in the office. She does have a known history of coronary artery disease with prior bypass surgery, significant peripheral arterial disease with prior procedures, hypertension , hyperlipidemia, she presented to the hospital with symptoms of midsternal chest pressure and heaviness with radiation to the left shoulder and underneath the left arm. She ruled in for non-Q-wave myocardial infarction. Patient was also found to have UTI for which she is receiving antibiotics. Echocardiogram with Doppler study was performed which revealed an ejection fraction of 50-55% with basal inferior and basal inferior septal hypokinesia. Reactive catheterization was initially scheduled to be performed today, creatinine 1.8 today. Cardiac catheterization has been rescheduled for tomorrow afternoon. Patient complained of having an episode of dizziness and felt like everything was spinning. Possible vertigo. Overall feeling better this morning. We will order Antivert to be given when necessary. Objective - Vital Signs Vital signs: Vital Signs Temp 97.3 F L 10/20/16 07:39 Pulse 77 10/20/16 07:39 Resp 18 10/20/16 07:39 BP 144/99 10/20/16 07:39 Pulse Ox 98 10/20/16 07:39 Intake & Output 10/19/16 10/20/16 10/20/16 18:59 06:59 18:59 Intake Total 1820 245.795 118 Output Total 200 Balance 1620 245.795 118 Weight 103.9 kg 105.9 kg Intake: IV 240 0.9 100 Heparin Sodium,Porcine/ 140 D5w Pmx 25,000 unit In Dextrose/Water 1 500ml. bag @ 10.1 UNITS/KG/HR 20 .15 mls/hr IV .Q24H [facility] Rx#:[id number] Intake, IV Titration 500 245.795 Amount Heparin Sodium,Porcine/ 500 245.795 D5w Pmx 25,000 unit In Dextrose/Water 1 500ml. bag @ 10.1 UNITS/KG/HR 20 .15 mls/hr IV .Q24H [facility] Rx#:[id number] Oral 1080 118 Output: Urine 200 Other: Voiding Method Toilet Toilet Toilet Bedside Commode # Voids 2 2 - Exam PHYSICAL EXAMINATION: HEENT: [Head is atraumatic, normocephalic. Pupils equal, round. Neck is supple. There is no elevated jugular venous pressure.] HEART EXAMINATION: [Heart S1, S2 normal. No murmur or gallop heard.] CHEST EXAMINATION:[ Lungs are clear to auscultation and precussion. No chest wall tenderness is noted on palpation or with deep breathing.] ABDOMEN: [ Soft, nontender. Bowel sounds are heard. No organomegaly noted]. EXTREMITIES:[ 2+ peripheral pulses with no evidence of peripheral edema and no calf tenderness noted]. NEUROLOGIC [patient is awake, alert and oriented -3.] . - Labs CBC & Chem 7: 10/20/16 05:42 10/20/16 05:42 Labs: Abnormal Lab Results - Last 24 Hours (Table) 10/19/16 10/19/16 10/20/16 Range/Units 17:05 20:48 05:42 RBC 2.88 L (3.80-5.40) m/uL Hgb 8.8 L (11.4-16.0) gm/dL Hct 28.0 L (34.0-46.0) % Plt Count 143 L (150-450) k/uL APTT (22.0-30.0) sec Chloride (98-107) mmol/L Carbon Dioxide (22-30) mmol/L BUN (7-17) mg/dL Creatinine (0.52-1.04) mg/dL Glucose (74-99) mg/dL POC Glucose (mg/dL) 113 H 167 H (75-99) mg/dL Calcium (8.4-10.2) mg/dL Total Protein (6.3-8.2) g/dL Albumin (3.5-5.0) g/dL 10/20/16 10/20/16 10/20/16 Range/Units 05:42 05:42 06:40 RBC (3.80-5.40) m/uL Hgb (11.4-16.0) gm/dL Hct (34.0-46.0) % Plt Count (150-450) k/uL APTT 59.2 H (22.0-30.0) sec Chloride 111 H (98-107) mmol/L Carbon Dioxide 18 L (22-30) mmol/L BUN 58 H (7-17) mg/dL Creatinine 1.84 H (0.52-1.04) mg/dL Glucose 164 H (74-99) mg/dL POC Glucose (mg/dL) 174 H (75-99) mg/dL Calcium 7.6 L (8.4-10.2) mg/dL Total Protein 5.2 L (6.3-8.2) g/dL Albumin 2.6 L (3.5-5.0) g/dL 10/20/16 Range/Units 11:24 RBC (3.80-5.40) m/uL Hgb (11.4-16.0) gm/dL Hct (34.0-46.0) % Plt Count (150-450) k/uL APTT (22.0-30.0) sec Chloride (98-107) mmol/L Carbon Dioxide (22-30) mmol/L BUN (7-17) mg/dL Creatinine (0.52-1.04) mg/dL Glucose (74-99) mg/dL POC Glucose (mg/dL) 223 H (75-99) mg/dL Calcium (8.4-10.2) mg/dL Total Protein (6.3-8.2) g/dL Albumin (3.5-5.0) g/dL Assessment and Plan Plan: Assessment and Plan #1 non-STEMI #2 history of coronary artery disease with prior bypass surgery in 2006 #3 PAD with prior vascular interventions #4 hypertension, accelerated #5 hyperlipidemia #6 diabetes #7 hyperlipidemia #8 UTI, afebrile, on IV antibiotics. #9 acute on chronic renal failure , creatinine 1.8 #10 paroxysmal atrial fibrillation Plan Creatinine today is 1.8, we will continue to hold the patient's Cozaar, give IV fluids at 75 mL an hour. Patient will be scheduled to undergo cardiac catheterization on Monday by Dr. Delarosa. DNP note has been reviewed, I agree with a documented findings and plan of care. Patient was seen and examined.
[2016-10-20 16:37] LABS: Glucose,Whole Blood 147 mg/dL (75-99)
[2016-10-20] MEDS: ISOSORBIDE MONONITRATE ER 60 MG TAB.ER.24H PO SCH (16:57)
[2016-10-20] MEDS: HEPARIN SODIUM,PORCINE/D5W PMX 25,000 UNIT in DEXTROSE/WATER 1 500ML.BAG IV SCH (17:01)
[2016-10-20 20:28] LABS: Glucose,Whole Blood 225 mg/dL (75-99)
[2016-10-20] MEDS: B COMPLEX-VIT C-VIT E-ZINC 1 EACH TAB PO SCH (21:12)
[2016-10-20] MEDS: CHOLECALCIFEROL 1,000 UNIT TAB PO SCH (21:13)
[2016-10-21] MEDS: ACETAMINOPHEN TAB 325 MG TAB PO PRN ×2 (03:49→19:49)
[2016-10-21 05:45] LABS: Glucose,Whole Blood 161 mg/dL (75-99)
[2016-10-21] MEDS: ISOSORBIDE MONONITRATE ER 60 MG TAB.ER.24H PO SCH (06:40)
[2016-10-21] MEDS: SODIUM CHLORIDE 0.9% 1,000 ML IV SCH ×2 (06:40→19:50)
[2016-10-21] MEDS: EZETIMIBE 10 MG TAB PO SCH (06:40)
[2016-10-21] MEDS: ASPIRIN 325 MG TAB PO SCH (06:41)
[2016-10-21] MEDS: INSULIN LISPRO (humaLOG) 300 UNIT/3 ML VIAL SQ SCH ×4 (06:41→21:26)
[2016-10-21] MEDS: CLOPIDOGREL 75 MG TAB PO SCH (06:41)
[2016-10-21] MEDS: METOPROLOL TARTRATE 50 MG TAB PO SCH ×2 (06:41→19:49)
[2016-10-21] MEDS: FAMOTIDINE 20 MG TAB PO SCH (06:41)
[2016-10-21 06:53] LABS: Basophils % (A) 0 %; CH 30.5; CHCM 31.4; Eosinophils # (A) 0.2 k/uL (0-0.7); Eosinophils % (A) 3 %; HCT 26.8 % (34.0-46.0); HDW 2.76; HGB 8.3 gm/dL (11.4-16.0); Hypochromasia Slight; Luc # (Auto) 0.19; Luc % (Auto) 3; Lymphocytes # (A) 1.2 k/uL (1.0-4.8); Lymphocytes % (A) 18 %; MCH 30.5 pg (25.0-35.0); MCHC 31.2 g/dL (31.0-37.0); MCV 97.6 fL (80.0-100.0); Mean Platelet Volume 7.8; Monocytes # (A) 0.4 k/uL (0-1.0); Monocytes % (A) 6 %; Neutrophils # (A) 4.8 k/uL (1.3-7.7); Neutrophils % (A) 70 %; RBC 2.74 m/uL (3.80-5.40); RDW 13.5 % (11.5-15.5); WBC 6.8 k/uL (3.8-10.6); WBC (Perox) 6.94
[2016-10-21] MEDS: INSULIN GLARGINE 100 UNIT/ML 10 ML VIAL SQ SCH (08:47)
--- NOTE | 2016-10-21 09:58 | P.PN ---
Subjective Patient is feeling anxious today. She is having worsening lower extremity edema. Objective - Vital Signs Vital signs: Vital Signs Temp 97.2 F L 10/21/16 00:00 Pulse 76 10/21/16 04:00 Resp 18 10/21/16 04:00 BP 128/58 10/21/16 04:00 Pulse Ox 96 10/21/16 04:00 Intake & Output 10/20/16 10/21/16 10/21/16 18:59 06:59 18:59 Intake Total 3856.388 8478 Output Total 800 Balance 1913.397 488 Weight 106.7 kg Intake: IV 1452 988 0.9 1170 Heparin Sodium,Porcine/ 282 238 D5w Pmx 25,000 unit In Dextrose/Water 1 500ml. bag @ 10.1 UNITS/KG/HR 20 .15 mls/hr IV .Q24H [facility] Rx#:[id number] Sodium Chloride 0.9% 1, 750 000 ml @ 75 mls/hr IV . [id number] [facility] Rx#:[id number] Intake, IV Titration 243.397 Amount Heparin Sodium,Porcine/ 243.397 D5w Pmx 25,000 unit In Dextrose/Water 1 500ml. bag @ 10.1 UNITS/KG/HR 20 .15 mls/hr IV .Q24H [facility] Rx#:[id number] Oral 218 300 Output: Urine 800 Other: Voiding Method Toilet Toilet # Voids 3 1 - Exam General: The patient is awake and alert, in no distress Eye: there is normal conjunctiva bilaterally. Neck: The neck is supple, there is no JVD. Cardiovascular: Normal S1-S2, no S3-S4, no murmurs. Respiratory: Lungs clear to auscultation bilaterally Gastrointestinal: Abdomen is soft, nontender Musculoskeletal: There is+1-2l edema. Neurological:. Speech is normal. Skin: Skin is warm and dry - Labs CBC & Chem 7: 10/21/16 05:48 10/20/16 05:42 Labs: Abnormal Lab Results - Last 24 Hours (Table) 10/20/16 10/20/16 10/20/16 Range/Units 11:24 16:34 20:27 RBC (3.80-5.40) m/uL Hgb (11.4-16.0) gm/dL Hct (34.0-46.0) % APTT (22.0-30.0) sec POC Glucose (mg/dL) 223 H 147 H 225 H (75-99) mg/dL 10/21/16 10/21/16 10/21/16 Range/Units 05:42 05:48 05:48 RBC 2.74 L (3.80-5.40) m/uL Hgb 8.3 L (11.4-16.0) gm/dL Hct 26.8 L (34.0-46.0) % APTT 51.8 H (22.0-30.0) sec POC Glucose (mg/dL) 161 H (75-99) mg/dL Assessment and Plan Plan: 1. Non-ST elevation [place]: seen and evaluated by cardiology. Continue medical management. Echocardiogram showed preserved ejection fraction and no significant wall motion abnormality. Plan for left heart catheterization today 2. Paroxysmal atrial fibrillation: new onset atrial fibrillation. Would switch to oral anticoagulation prior to discharge. 3. Coronary artery disease with history of bypass surgery in 2006 4. Uncontrolled type 2 diabetes mellitus: patient reported compliance at home. We will continue current insulin regimen. Blood glucose within acceptable range 5. 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 Mixed hyperlipidemia: not at goal. Patient was unable to tolerate statin in the past. I would start Zetia 10 mg daily 7. Essential hypertension: Blood pressure better controlled. Today, I reviewed her medication list and lab work results. Continue current regimen. Appreciate cardiology recommendations. Repeat lab work in the morning.
[2016-10-21] MEDS: ALPRAZolam 0.25 MG TAB PO PRN ×2 (10:12→22:40)
[2016-10-21 10:17] LABS: Potassium 4.1 mmol/L (3.5-5.1)
[2016-10-21 11:57] LABS: Glucose,Whole Blood 287 mg/dL (75-99)
--- NOTE | 2016-10-21 12:43 | CDI ---
In responding to this query, please exercise your independent professional judgment. The [facility] Coding Staff and Clinical Documentation Specialists appreciate your assistance in clarifying documentation, maintaining compliance with coding guidelines, accurately documenting patients condition and capturing severity of illness. The fact that a question is asked does not imply that any particular answer is desired or expected. Communication forms are a method of clarifying documentation and are not made part of the Legal Health Record. Thank you in advance for your clarification. Last Revision, August 2015 Dalton [place] [address] [place] [address] Documentation Clarification Form Date: 10/21/2016 12:29:00 PM Resubmitted 10/26/2016 From: Ladonna Gresham CCS, CCDS Admit Date: 10/16/2016 10:20:00 PM Patient Name: Anh Donis Visit Number: [id number] Discharge Date: 10/24/2016 Dr. Daisha Nava and Dr. Gail Rodriges, DNP: CHF is documented in the cardiology consult as mild congestive heart failure. History/Risk Factors: DC status post CABG, Hypertension, Hyperlipidemia, DM, PAD requiring vascular surgery. Clinical Indicators: Presented with chest pain, sweating, chills, some pain in left arm & some relief with nitro. Per 10/20 patients lower extremity swelling increased. VS/Pulse OX: P 105, BP 206/92, PO 96 2Lnc BNP: 4320 Echocardiogram Results: EF 50-55% systolic low normal, mild TR, mild pulmonary hypertension. Chest X Ray: Correlate for congestive heart failure Treatment: Telemetry, EKG, One dose of IV Lasix(?), per AUG, pt refused. IV fluids, IV Ms, IV Levaquin, Heparin drip, Nitropaste, Nitro sl. Consults: Cardiology, possible heart catheterization on Monday (10/21). In your professional opinion, can you please clarify the acuity and type of CHF if known? Acute Chronic Acute on Chronic AND Systolic Diastolic Systolic and Diastolic Cor Pulmonale (Right Sided HF w/ Pulmonary HTN) Unable to determine Other, please specify If known, please specify if Heart Failure is due to: Hypertension Rheumatic Fever Please document in your progress notes and discharge summary in order to capture severity of illness and risk of mortality. Include clinical findings that support your diagnosis. FYI: Press F11 to launch patient chart. Place X here if this finding has no clinical significance, is not applicable or if you are not able to provide any additional documentation. Thank You. SUZANNE
[2016-10-21 16:42] LABS: Glucose,Whole Blood 205 mg/dL (75-99)
[2016-10-21] MEDS: B COMPLEX-VIT C-VIT E-ZINC 1 EACH TAB PO SCH (19:48)
[2016-10-21] MEDS: CHOLECALCIFEROL 1,000 UNIT TAB PO SCH (19:49)
[2016-10-21 21:13] LABS: Glucose,Whole Blood 257 mg/dL (75-99)
[2016-10-21 21:45] LABS: Glucose,Whole Blood 228 mg/dL (75-99)
[2016-10-21] MEDS: HEPARIN SODIUM,PORCINE/D5W PMX 25,000 UNIT in DEXTROSE/WATER 1 500ML.BAG IV SCH (22:40)
[2016-10-22] MEDS: HYDROcodone/APAP 5-325MG 1 EACH TAB PO PRN ×3 (04:08→20:24)
[2016-10-22 06:16] LABS: Glucose,Whole Blood 187 mg/dL (75-99)
[2016-10-22] MEDS: INSULIN LISPRO (humaLOG) 300 UNIT/3 ML VIAL SQ SCH ×4 (06:26→20:48)
[2016-10-22] MEDS: METOPROLOL TARTRATE 50 MG TAB PO SCH ×2 (06:27→20:23)
[2016-10-22] MEDS: CLOPIDOGREL 75 MG TAB PO SCH (06:27)
[2016-10-22] MEDS: LEVOFLOXACIN 750 MG TAB PO SCH (06:27)
[2016-10-22] MEDS: ASPIRIN 325 MG TAB PO SCH (06:27)
[2016-10-22] MEDS: FAMOTIDINE 20 MG TAB PO SCH (06:27)
[2016-10-22] MEDS: ISOSORBIDE MONONITRATE ER 60 MG TAB.ER.24H PO SCH (06:27)
[2016-10-22] MEDS: EZETIMIBE 10 MG TAB PO SCH (06:27)
[2016-10-22] MEDS: SODIUM CHLORIDE 0.9% 1,000 ML IV SCH (06:33)
[2016-10-22 10:43] VITALS: BMI 42.5
[2016-10-22] MEDS: INSULIN GLARGINE 100 UNIT/ML 10 ML VIAL SQ SCH (10:55)
[2016-10-22] MEDS ORDERED: SODIUM CHLORIDE 0.9% 1,000 ML IV SCH ×2 (11:00→14:00)
[2016-10-22 11:44] LABS: Glucose,Whole Blood 157 mg/dL (75-99)
[2016-10-22] MEDS ORDERED: IV FLUID CONTINUATION 950 ML IV ONE (11:56)
--- NOTE | 2016-10-22 11:58 | P.PN ---
Subjective Patient is doing fairly well today. She is waiting anxiously for her left heart catheterization. She is concerned about worsening lower extremity edema. Blood glucose was elevated this morning as patient did not get her insulin for unclear reason. Nursing staff to give her Lantus dose this morning. Objective - Vital Signs Vital signs: Vital Signs Temp 96.9 F L 10/22/16 08:16 Pulse 63 10/22/16 08:16 Resp 16 10/22/16 08:16 BP 156/64 10/22/16 08:16 Pulse Ox 100 10/22/16 08:16 Intake & Output 10/21/16 10/22/16 10/22/16 18:59 06:59 18:59 Intake Total 500 1560 250.591 Output Total 1500 550 Balance -1000 1010 250.591 Weight 105.5 kg 105.5 kg Intake: IV 1560 Heparin Sodium,Porcine/ 360 D5w Pmx 25,000 unit In Dextrose/Water 1 500ml. bag @ 10.1 UNITS/KG/HR 20 .15 mls/hr IV .Q24H JEANIE Rx#:[id number] Sodium Chloride 0.9% 1, 1200 000 ml @ 75 mls/hr IV . [id number] JEANIE Rx#:[id number] Intake, IV Titration 500 250.591 Amount Heparin Sodium,Porcine/ 500 250.591 D5w Pmx 25,000 unit In Dextrose/Water 1 500ml. bag @ 10.1 UNITS/KG/HR 20 .15 mls/hr IV .Q24H JEANIE Rx#:[id number] Output: Urine 1500 550 Other: Voiding Method Toilet Toilet Toilet Bedside Commode # Voids 2 1 - Exam General: The patient is awake and alert, in no distress Eye: there is normal conjunctiva bilaterally. Neck: The neck is supple, there is no JVD. Cardiovascular: Normal S1-S2, no S3-S4, no murmurs. Respiratory: Lungs clear to auscultation bilaterally Gastrointestinal: Abdomen is soft, nontender Musculoskeletal: There is+1-2l edema. Neurological:. Speech is normal. Skin: Skin is warm and dry - Labs CBC & Chem 7: 10/21/16 05:48 10/21/16 05:48 Labs: Abnormal Lab Results - Last 24 Hours (Table) 10/21/16 10/21/16 10/21/16 Range/Units 11:48 16:40 21:07 APTT (22.0-30.0) sec POC Glucose (mg/dL) 287 H 205 H 257 H (75-99) mg/dL 10/21/16 10/22/16 10/22/16 Range/Units 21:38 06:00 06:35 APTT 47.2 H (22.0-30.0) sec POC Glucose (mg/dL) 228 H 187 H (75-99) mg/dL 10/22/16 Range/Units 11:43 APTT (22.0-30.0) sec POC Glucose (mg/dL) 157 H (75-99) mg/dL Assessment and Plan Plan: 1. Non-ST elevation FL: seen and evaluated by cardiology. Continue medical management. Echocardiogram showed preserved ejection fraction and no significant wall motion abnormality. Plan for left heart catheterization today 2. Paroxysmal atrial fibrillation: new onset atrial fibrillation. Would switch to oral anticoagulation prior to discharge. 3. Coronary artery disease with history of bypass surgery in 2006 4. Uncontrolled type 2 diabetes mellitus: patient reported compliance at home. We will continue current insulin regimen. Blood glucose within acceptable range 5. 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 Mixed hyperlipidemia: not at goal. Patient was unable to tolerate statin in the past. I would start Zetia 10 mg daily 7. Essential hypertension: Blood pressure better controlled. Today, I reviewed her medication list and lab work results. Continue current regimen. Appreciate cardiology recommendations. Repeat lab work in the morning.
[2016-10-22] MEDS ORDERED: diphenhydrAMINE 50 MG/ML 1 ML VIAL ONE (12:18)
[2016-10-22] MEDS ORDERED: MIDAZOLAM 2 MG/2 ML VIAL ONE (12:19)
[2016-10-22] MEDS ORDERED: diphenhydrAMINE 50 MG/ML 1 ML VIAL IVP ONE (12:32)
[2016-10-22] MEDS ORDERED: MIDAZOLAM 2 MG/2 ML VIAL IV ONE (12:35)
[2016-10-22] MEDS ORDERED: LIDOCAINE 2% INJ 20 MG/ML SQ ONE (12:38)
[2016-10-22] MEDS ORDERED: ENALAPRILAT 1.25 MG/ML 1 ML VIAL ONE (12:46)
[2016-10-22] MEDS ORDERED: hydrALAZINE HCL 20 MG/ML 1 ML VIAL ONE (12:46)
[2016-10-22] MEDS ORDERED: hydrALAZINE HCL 20 MG/ML 1 ML VIAL IV ONE (12:48)
[2016-10-22] MEDS ORDERED: ENALAPRILAT 1.25 MG/ML 1 ML VIAL IV ONE (12:54)
[2016-10-22] MEDS ORDERED: BIVALIRUDIN BOLUS 250 MG/50 ML IV ONE (13:06)
[2016-10-22] MEDS ORDERED: BIVALIRUDIN 250 MG in SODIUM CHLORIDE 0.9% 50 ML IV ONE (13:06)
[2016-10-22] MEDS ORDERED: HYDROmorphone 2 MG/ML 1 ML SYRINGE ONE (13:13)
[2016-10-22] MEDS ORDERED: HYDROmorphone 2 MG/ML 1 ML SYRINGE IV ONE (13:16)
[2016-10-22] MEDS: niCARdipine Syringe (1,000 mcg/10 mL) INTRACORON ONE ×3 (13:20→13:30)
[2016-10-22] MEDS ORDERED: CLOPIDOGREL 75 MG TAB ONE (13:32)
[2016-10-22] MEDS ORDERED: CLOPIDOGREL 75 MG TAB PO ONE (13:35)
[2016-10-22] MEDS ORDERED: IODIXANOL 320 MG/ML 100 ML INTRAARTER ONE (13:36)
[2016-10-22] MEDS ORDERED: NITROGLYCERIN SL TABS 0.4 MG TAB SUBLINGUAL PRN (13:46)
[2016-10-22] MEDS ORDERED: MAG HYDROX/AL HYDROX/SIMETH 30 ML CUP PO PRN (13:46)
[2016-10-22] MEDS ORDERED: ZOLPIDEM 5 MG TAB PO PRN (13:46)
[2016-10-22] MEDS ORDERED: RX INFO: IV CONTRAST WAS GIVEN 1 EACH MISC MISCELLANE PRN (13:46)
[2016-10-22] MEDS ORDERED: ATROPINE SULFATE 0.1 MG/ML 10ML SYRINGE IV PRN (13:46)
[2016-10-22 14:34] LABS: Glucose,Whole Blood 148 mg/dL (75-99)
[2016-10-22 16:27] LABS: Glucose,Whole Blood 138 mg/dL (75-99)
[2016-10-22] MEDS: CHOLECALCIFEROL 1,000 UNIT TAB PO SCH (20:23)
[2016-10-22] MEDS: B COMPLEX-VIT C-VIT E-ZINC 1 EACH TAB PO SCH (20:23)
[2016-10-22 20:46] LABS: Glucose,Whole Blood 210 mg/dL (75-99)
--- NOTE | 2016-10-22 22:00 | CC ---
DATE OF SERVICE: October 22, 2016. Performing physician: Rufus Flynn M.D., machine room engineer. PROCEDURE PERFORMED: 1. Selective left and right coronary angiogram. 2. SVG angiogram x3. 3. Left internal mammary artery angiogram. 4. Successful stenting of the SVG to obtuse marginal branch using 3.5 x 15 and 3.5 x 8 mm Xience JEANNE with a good angiographic results. 5. Selective left common femoral artery angiogram. INDICATION: This is a pleasant 75-year-old female patient with a known history of coronary artery disease and prior coronary artery bypass grafting where she received GAY to LAD, SVG to diagonal, SVG to OM, and SVG to RCA, as well as known history of peripheral arterial disease was admitted to the hospital with chest discomfort and was ruled in for acute non-ST elevation myocardial infarction. The decision was made for heart catheterization and percutaneous coronary intervention. Approach: Left common femoral artery. COMPLICATIONS: None. Level of sedation: Moderate with a sedation length of about an hour. PROCEDURE DESCRIPTION: After obtaining informed consent, the patient was brought to the cardiac label coder. The left common femoral artery was cannulated using micropuncture technique. Micropuncture wire passed easily, then I placed a 6 Japanese sheath in the left common femoral artery. Subsequently, I did selective left and right coronary angiogram. The left coronary angiogram was performed using JL4 catheter, and the right coronary angiogram was performed using JR4 catheters. I did after that SVG angiogram to OM and diag using the JR4 catheters. SVG angiogram to right coronary artery was performed using multipurpose catheter. The GAY angiogram was performed using Brent Green catheter. After that, I did perform an angioplasty and did perform stenting of the SVG to OM. Please see separate paragraph for that. SELECTIVE CORONARY ANGIOGRAM: 1. The left main is severely diseased. It bifurcates into the left circumflex and left anterior descending artery. 2. The left circumflex is 100% occluded in the midportion. 3. The LAD is 100% occluded by the ostium. 4. The right coronary artery is 100% occluded in the proximal portion. CORONARY BYPASS ANGIOGRAM: 1. The SVG to OM has severe lesion in the midportion, seems to be hazy. 2. The SVG to diagonal is patent. 3. The SVG to right coronary artery is patent. 4. GAY to LAD is patent as well. PCI of the SVG to obtuse marginal branch: Anticoagulation was initiated using Angiomax. Subsequently, I did try to engage that graft initially using JR4 catheter and I was unable and then using an LCB guide and I was unable, then finally, I was able to engage it with a good support using Amplatzer one guiding catheter. I wired it using a Whisper wire. Subsequently, I did direct stenting on that graft using 3.5 x 15 mm Xience JEANNE, where the stent was positioned under fluoroscopy guidance and it was deployed under 12 atmospheres for 20 seconds. The following angiogram showed an area of haziness just proximal to the stent. I decided to stent that segment as well. So I deployed 3.5 x 8 mm stent right there as well. The following angiogram showed good angiographic result without perforation and without dissection with a good flow in that graft. CONCLUSION: 1. Severe triple-vessel coronary artery disease. 2. Patent left internal mammary artery to left anterior descending coronary artery. 3. Patent saphenous vein graft to diagonal. 4. Patent saphenous vein graft to right coronary artery. 5. Severe disease involving the saphenous vein graft to obtuse marginal branch. 6. Successful stenting of the saphenous vein graft to obtuse marginal using 3.5 x 15 and 3.5 x 8 mm Xience JEANNE with a good angiographic results. POSTPROCEDURE MANAGEMENT: 1. Dual antiplatelet therapy. 2. Coronary risk factor modifications. 3. Follow up with the patient.
[2016-10-23] MEDS: ALPRAZolam 0.25 MG TAB PO PRN (00:16)
[2016-10-23] MEDS: HYDROcodone/APAP 5-325MG 1 EACH TAB PO PRN ×2 (02:48→08:01)
[2016-10-23] MEDS ORDERED: MORPHINE SULFATE 2 MG/ML SYRINGE IVP PRN (03:10)
[2016-10-23 06:15] LABS: Glucose,Whole Blood 168 mg/dL (75-99)
[2016-10-23] MEDS: INSULIN LISPRO (humaLOG) 300 UNIT/3 ML VIAL SQ SCH ×4 (06:33→22:09)
[2016-10-23 07:00] LABS: Basophils % (A) 0 %; CH 30.4; CHCM 31.2; Eosinophils # (A) 0.3 k/uL (0-0.7); Eosinophils % (A) 3 %; HCT 30.4 % (34.0-46.0); HDW 2.85; HGB 9.5 gm/dL (11.4-16.0); Hypochromasia Slight; Luc # (Auto) 0.17; Luc % (Auto) 2; Lymphocytes % (A) 12 %; MCH 30.6 pg (25.0-35.0); MCHC 31.3 g/dL (31.0-37.0); MCV 97.8 fL (80.0-100.0); Mean Platelet Volume 7.5; Monocytes # (A) 0.4 k/uL (0-1.0); Monocytes % (A) 5 %; Neutrophils # (A) 6.6 k/uL (1.3-7.7); Neutrophils % (A) 78 %; RBC 3.11 m/uL (3.80-5.40); RDW 13.9 % (11.5-15.5); WBC 8.5 k/uL (3.8-10.6); WBC (Perox) 9.06
[2016-10-23 07:11] LABS: Calcium 9.1 mg/dL (8.4-10.2); Potassium 4.5 mmol/L (3.5-5.1)
[2016-10-23] MEDS: METOPROLOL TARTRATE 50 MG TAB PO SCH ×2 (08:02→19:56)
[2016-10-23] MEDS: ASPIRIN 325 MG TAB PO SCH (08:02)
[2016-10-23] MEDS: FAMOTIDINE 20 MG TAB PO SCH (08:03)
[2016-10-23] MEDS: CLOPIDOGREL 75 MG TAB PO SCH (08:03)
[2016-10-23] MEDS: EZETIMIBE 10 MG TAB PO SCH (08:03)
[2016-10-23] MEDS: INSULIN GLARGINE 100 UNIT/ML 10 ML VIAL SQ SCH (08:11)
[2016-10-23 11:23] LABS: Glucose,Whole Blood 207 mg/dL (75-99)
[2016-10-23] MEDS: ISOSORBIDE MONONITRATE ER 60 MG TAB.ER.24H PO SCH (11:55)
[2016-10-23] MEDS ORDERED: DOCUSATE 100 MG CAP PO PRN (12:15)
--- NOTE | 2016-10-23 13:42 | US ---
EXAMINATION TYPE: US venous doppler duplex LE RT DATE OF EXAM: 10/23/2016 1:30 PM COMPARISON: 10/17/2016 CLINICAL HISTORY: 75-year-old female r/o DVT. Right leg pain and swelling. On blood thinners and no history of blood clots. Knee replacement x 2. SIDE PERFORMED: Right TECHNIQUE: The lower extremity deep venous system is examined utilizing real time linear array sonog nadiya with graded compression, doppler sonography and color-flow sonography. FINDINGS: VESSELS IMAGED: External Iliac Vein (EIV) Common Femoral Vein Deep Femoral Vein Greater Saphenous Vein * Femoral Vein Popliteal Vein Small Saphenous Vein * Proximal Calf Veins (* superficial vessels) VENEER SORTER NOTES: Suboptimal visualization due to patient body habitus Right Leg: Appears negative for acute DVT IMPRESSION: The wet process assistant head miller notes technical limitations due to large body habitus. To the extent visualized, no e vidence for DVT in the right lower extremity imaged from the groin to the upper calf.
--- NOTE | 2016-10-23 13:47 | P.PN ---
Subjective Patient is doing well today. No events overnight. There is worsening right lower extremity swelling compared to the left. Objective - Vital Signs Vital signs: Vital Signs Temp 97 F L 10/23/16 11:12 Pulse 67 10/23/16 11:12 Resp 16 10/23/16 11:12 BP 140/65 10/23/16 11:12 Pulse Ox 99 10/23/16 11:12 Intake & Output 10/22/16 10/23/16 10/23/16 18:59 06:59 18:59 Intake Total 610.731 810 225 Output Total 100 500 Balance 510.731 310 225 Weight 105.5 kg 86.3 kg Intake: IV 240.14 810 0.9% NS FLUSH 10mL 10 Sodium Chloride 0.9% 1, 800 000 ml @ 100 mls/hr IV . Q10H JEANIE Rx#:[id number] Intake, IV Titration 250.591 Amount Heparin Sodium,Porcine/ 250.591 D5w Pmx 25,000 unit In Dextrose/Water 1 500ml. bag @ 10.1 UNITS/KG/HR 20 .15 mls/hr IV .Q24H JEANIE Rx#:[id number] Oral 120 225 Output: Urine 100 500 Other: Voiding Method Bedpan Toilet Toilet # Voids 1 - Exam General: The patient is awake and alert, in no distress Eye: there is normal conjunctiva bilaterally. Neck: The neck is supple, there is no JVD. Cardiovascular: Normal S1-S2, no S3-S4, no murmurs. Respiratory: Lungs clear to auscultation bilaterally Gastrointestinal: Abdomen is soft, nontender Musculoskeletal: There is+1-2l edema. Neurological:. Speech is normal. Skin: Skin is warm and dry - Labs CBC & Chem 7: 10/23/16 06:11 10/23/16 06:11 Labs: Abnormal Lab Results - Last 24 Hours (Table) 10/22/16 10/22/16 10/22/16 Range/Units 14:29 16:25 20:45 RBC (3.80-5.40) m/uL Hgb (11.4-16.0) gm/dL Hct (34.0-46.0) % Chloride (98-107) mmol/L Carbon Dioxide (22-30) mmol/L BUN (7-17) mg/dL Creatinine (0.52-1.04) mg/dL Glucose (74-99) mg/dL POC Glucose (mg/dL) 148 H 138 H 210 H (75-99) mg/dL 10/23/16 10/23/16 10/23/16 Range/Units 06:11 06:11 06:13 RBC 3.11 L (3.80-5.40) m/uL Hgb 9.5 L (11.4-16.0) gm/dL Hct 30.4 L (34.0-46.0) % Chloride 112 H (98-107) mmol/L Carbon Dioxide 19 L (22-30) mmol/L BUN 30 H (7-17) mg/dL Creatinine 1.44 H (0.52-1.04) mg/dL Glucose 149 H (74-99) mg/dL POC Glucose (mg/dL) 168 H (75-99) mg/dL 10/23/16 Range/Units 11:21 RBC (3.80-5.40) m/uL Hgb (11.4-16.0) gm/dL Hct (34.0-46.0) % Chloride (98-107) mmol/L Carbon Dioxide (22-30) mmol/L BUN (7-17) mg/dL Creatinine (0.52-1.04) mg/dL Glucose (74-99) mg/dL POC Glucose (mg/dL) 207 H (75-99) mg/dL Assessment and Plan Plan: 1. Non-ST elevation [place]: Status post left heart catheterization with successful stenting of the SVG to obtuse marginal branch using JEANNE. Continue medical management. Echocardiogram showed preserved ejection fraction and no significant wall motion abnormality. 2. Paroxysmal atrial fibrillation: new onset atrial fibrillation. I would discuss with cardiology if anticoagulation is required now that the patient is on dual antiplatelet therapy 3. Coronary artery disease with history of bypass surgery in 2006 4. Uncontrolled type 2 diabetes mellitus: patient reported compliance at home. We will continue current insulin regimen. Blood glucose within acceptable range 5. 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 Mixed hyperlipidemia: not at goal. Patient was unable to tolerate statin in the past. I would start Zetia 10 mg daily 7. Essential hypertension: Blood pressure better controlled. Today, I reviewed her medication list and lab work results. Continue current regimen. Appreciate cardiology recommendations. Repeat lab work in the morning.
--- NOTE | 2016-10-23 14:10 | P.PN ---
Subjective Principal diagnosis: Non-STEMI This is a pleasant 75-year-old female patient with a past medical history significant for CAD and status post CABG, PAD, paroxysmal atrial for evaluation, hypertension, dyslipidemia was admitted to the hospital with acute non-STEMI. She underwent a heart catheterization yesterday and she was found to have severe triple-vessel CAD with patent GAY to LAD, patent SVG to diagonal, severe disease involving the SVG to OM, and patent SVG to RCA. She underwent successful stenting of the SVG to obtuse marginal branch using 2 drug-eluting stent with a good angiographic results and without any complications. I'll follow-up with her today, she denies having any chest pain or discomfort or difficulty breathing. She has bilateral lower extremities edema seems to be slightly worse on the right side. She underwent a venous duplex study to rule out DVT. I will continue the current medical treatment including dual antiplatelet and statin. I am going to add Eliquis for anticoagulation. Also I will start the patient on a small dose of Lasix. The patient hopefully will be discharged home tomorrow. Objective - Vital Signs Vital signs: Vital Signs Temp 97 F L 10/23/16 11:12 Pulse 67 10/23/16 11:12 Resp 16 10/23/16 11:12 BP 140/65 10/23/16 11:12 Pulse Ox 99 10/23/16 11:12 Intake & Output 10/22/16 10/23/16 10/23/16 18:59 06:59 18:59 Intake Total 610.731 810 225 Output Total 100 500 Balance 510.731 310 225 Weight 105.5 kg 86.3 kg Intake: IV 240.14 810 0.9% NS FLUSH 10mL 10 Sodium Chloride 0.9% 1, 800 000 ml @ 100 mls/hr IV . Q10H JEANIE Rx#:[id number] Intake, IV Titration 250.591 Amount Heparin Sodium,Porcine/ 250.591 D5w Pmx 25,000 unit In Dextrose/Water 1 500ml. bag @ 10.1 UNITS/KG/HR 20 .15 mls/hr IV .Q24H JEANIE Rx#:[id number] Oral 120 225 Output: Urine 100 500 Other: Voiding Method Bedpan Toilet Toilet # Voids 1 - Constitutional General appearance: Present: no acute distress - Respiratory Respiratory: bilateral: CTA - Cardiovascular Rhythm: regular - Labs CBC & Chem 7: 10/23/16 06:11 10/23/16 06:11 Labs: Abnormal Lab Results - Last 24 Hours (Table) 10/22/16 10/22/16 10/22/16 Range/Units 14:29 16:25 20:45 RBC (3.80-5.40) m/uL Hgb (11.4-16.0) gm/dL Hct (34.0-46.0) % Chloride (98-107) mmol/L Carbon Dioxide (22-30) mmol/L BUN (7-17) mg/dL Creatinine (0.52-1.04) mg/dL Glucose (74-99) mg/dL POC Glucose (mg/dL) 148 H 138 H 210 H (75-99) mg/dL 10/23/16 10/23/16 10/23/16 Range/Units 06:11 06:11 06:13 RBC 3.11 L (3.80-5.40) m/uL Hgb 9.5 L (11.4-16.0) gm/dL Hct 30.4 L (34.0-46.0) % Chloride 112 H (98-107) mmol/L Carbon Dioxide 19 L (22-30) mmol/L BUN 30 H (7-17) mg/dL Creatinine 1.44 H (0.52-1.04) mg/dL Glucose 149 H (74-99) mg/dL POC Glucose (mg/dL) 168 H (75-99) mg/dL 10/23/16 Range/Units 11:21 RBC (3.80-5.40) m/uL Hgb (11.4-16.0) gm/dL Hct (34.0-46.0) % Chloride (98-107) mmol/L Carbon Dioxide (22-30) mmol/L BUN (7-17) mg/dL Creatinine (0.52-1.04) mg/dL Glucose (74-99) mg/dL POC Glucose (mg/dL) 207 H (75-99) mg/dL Assessment and Plan Plan: Assessment #1 CAD as described above #2 PAD #3 mild bilateral lower extremities edema #4 multiple comorbid conditions #5 paroxysmal atrial fibrillation Plan Continue the dual antiplatelet therapy Add anticoagulation for the A. fib Start the patient on Lasix Follow-up with the patient
[2016-10-23 16:28] LABS: Glucose,Whole Blood 270 mg/dL (75-99)
[2016-10-23] MEDS: CHOLECALCIFEROL 1,000 UNIT TAB PO SCH (19:56)
[2016-10-23] MEDS: APIXABAN 2.5 MG TABLET PO SCH (19:56)
[2016-10-23] MEDS: B COMPLEX-VIT C-VIT E-ZINC 1 EACH TAB PO SCH (19:56)
[2016-10-23 21:59] LABS: Glucose,Whole Blood 232 mg/dL (75-99)
[2016-10-24] MEDS: ALPRAZolam 0.25 MG TAB PO PRN (01:04)
[2016-10-24] MEDS: HYDROcodone/APAP 5-325MG 1 EACH TAB PO PRN (03:29)
[2016-10-24 06:11] LABS: Glucose,Whole Blood 165 mg/dL (75-99)
[2016-10-24] MEDS: INSULIN LISPRO (humaLOG) 300 UNIT/3 ML VIAL SQ SCH ×2 (06:25→11:56)
[2016-10-24 07:09] LABS: Basophils % (A) 0 %; CH 30.9; CHCM 32.3; Eosinophils # (A) 0.2 k/uL (0-0.7); Eosinophils % (A) 3 %; HCT 26.4 % (34.0-46.0); HDW 2.96; HGB 8.7 gm/dL (11.4-16.0); Luc # (Auto) 0.17; Luc % (Auto) 3; Lymphocytes % (A) 15 %; MCH 31.7 pg (25.0-35.0); MCHC 32.9 g/dL (31.0-37.0); MCV 96.4 fL (80.0-100.0); Mean Platelet Volume 7.6; Monocytes # (A) 0.4 k/uL (0-1.0); Monocytes % (A) 7 %; Neutrophils # (A) 4.7 k/uL (1.3-7.7); Neutrophils % (A) 73 %; RBC 2.74 m/uL (3.80-5.40); RDW 14.1 % (11.5-15.5); WBC 6.5 k/uL (3.8-10.6); WBC (Perox) 6.86
[2016-10-24 07:15] LABS: Calcium 8.7 mg/dL (8.4-10.2); Potassium 4.7 mmol/L (3.5-5.1)
[2016-10-24] MEDS: LEVOFLOXACIN 750 MG TAB PO SCH (08:05)
[2016-10-24] MEDS: APIXABAN 2.5 MG TABLET PO SCH (08:05)
[2016-10-24] MEDS: METOPROLOL TARTRATE 50 MG TAB PO SCH (08:05)
[2016-10-24] MEDS: ISOSORBIDE MONONITRATE ER 60 MG TAB.ER.24H PO SCH (08:05)
[2016-10-24] MEDS: CLOPIDOGREL 75 MG TAB PO SCH (08:05)
[2016-10-24] MEDS: EZETIMIBE 10 MG TAB PO SCH (08:06)
[2016-10-24] MEDS: FAMOTIDINE 20 MG TAB PO SCH (08:06)
[2016-10-24] MEDS: INSULIN GLARGINE 100 UNIT/ML 10 ML VIAL SQ SCH (08:10)
[2016-10-24 08:15] VITALS: RESP 16; TEMP 97.1
[2016-10-24] MEDS ORDERED: FUROSEMIDE 20 MG TAB PO SCH (09:00)
[2016-10-24] MEDS ORDERED: ASPIRIN 81 MG CHEW PO SCH (09:00)
--- NOTE | 2016-10-24 10:37 | P.PN ---
Subjective Principal diagnosis: Non-Q-wave PA This is a pleasant 75-year-old female who follows with Dr. Delarosa in the office. She does have a known history of coronary artery disease with prior bypass surgery, significant peripheral arterial disease with prior procedures, hypertension , hyperlipidemia, she presented to the hospital with symptoms of midsternal chest pressure and heaviness with radiation to the left shoulder and underneath the left arm. She ruled in for non-Q-wave myocardial infarction. Patient was also found to have UTI for which she is receiving antibiotics. Echocardiogram with Doppler study was performed which revealed an ejection fraction of 50-55% with basal inferior and basal inferior septal hypokinesia. Patient underwent successful stenting of the SVG to the obtuse marginal. She was seen and examined this morning, doing well, denies any chest pain or difficulty in breathing. Patient does have paroxysmal atrial fibrillation and for this reason she will be on triple therapy including Eliquis , baby aspirin, and Plavix. Patient was also given by mouth Lasix yesterday. Ultrasound of the lower extremities performed which was negative for DVT. Objective - Vital Signs Vital signs: Vital Signs Temp 97.1 F L 10/24/16 08:00 Pulse 71 10/24/16 08:00 Resp 16 10/24/16 08:00 BP 129/81 10/24/16 08:00 Pulse Ox 99 10/24/16 08:00 Intake & Output 10/23/16 10/24/16 10/24/16 18:59 06:59 18:59 Intake Total 585 20 240 Output Total 100 Balance 585 -80 240 Weight 109 kg Intake: IV 20 0.9% NS FLUSH 10mL 20 Oral 585 240 Output: Urine 100 Other: Voiding Method Toilet Toilet # Voids 1 1 1 # Bowel Movements 1 - Exam PHYSICAL EXAMINATION: HEENT: Head is atraumatic, normocephalic. Pupils equal, round. Neck is supple. There is no elevated jugular venous pressure. HEART EXAMINATION: Heart S1, S2 normal. No murmur or gallop heard. CHEST EXAMINATION: Lungs are clear to auscultation and precussion. No chest wall tenderness is noted on palpation or with deep breathing. ABDOMEN: Soft, nontender. Bowel sounds are heard. No organomegaly noted. Left groin soft, no evidence of any hematoma. EXTREMITIES: 2+ peripheral pulses with no evidence of peripheral edema and no calf tenderness noted. NEUROLOGIC patient is awake, alert and oriented -3. . - Labs CBC & Chem 7: 10/24/16 05:46 10/24/16 05:46 Labs: Abnormal Lab Results - Last 24 Hours (Table) 10/23/16 10/23/16 10/23/16 Range/Units 11:21 16:27 21:54 RBC (3.80-5.40) m/uL Hgb (11.4-16.0) gm/dL Hct (34.0-46.0) % Chloride (98-107) mmol/L Carbon Dioxide (22-30) mmol/L BUN (7-17) mg/dL Creatinine (0.52-1.04) mg/dL Glucose (74-99) mg/dL POC Glucose (mg/dL) 207 H 270 H 232 H (75-99) mg/dL 10/24/16 10/24/16 10/24/16 Range/Units 05:46 05:46 05:48 RBC 2.74 L (3.80-5.40) m/uL Hgb 8.7 L (11.4-16.0) gm/dL Hct 26.4 L (34.0-46.0) % Chloride 111 H (98-107) mmol/L Carbon Dioxide 20 L (22-30) mmol/L BUN 33 H (7-17) mg/dL Creatinine 1.73 H (0.52-1.04) mg/dL Glucose 139 H (74-99) mg/dL POC Glucose (mg/dL) 165 H (75-99) mg/dL Assessment and Plan Plan: Assessment and Plan #1 non-STEMI, status post stent placement of the SVG to the obtuse marginal. #2 history of coronary artery disease with prior bypass surgery in 2006 #3 PAD with prior vascular interventions #4 hypertension, accelerated #5 hyperlipidemia #6 diabetes #7 hyperlipidemia #8 UTI, afebrile, on IV antibiotics. #9 acute on chronic renal failure , creatinine 1.7 #10 paroxysmal atrial fibrillation Plan From cardiology's perspective, patient may be able to be discharged home today. We will make her a follow-up appointment to see Dr. Delarosa in the office in one week. Creatinine today is 1.7. Patient will be discharged home on triple therapy which includes Plavix 75 mg daily, aspirin 81 mg daily, along with Eliquis 2-1/2 mg one tablet by mouth twice a day. We will continue Lasix 20 mg daily along with study at 10 mg daily, Imdur 60 mg daily, metoprolol tartrate 100 mg by mouth twice a day, and sublingual nitroglycerin as needed for chest pain. DNP note has been reviewed, I agree with a documented findings and plan of care. Patient was seen and examined.
[2016-10-24 11:51] LABS: Glucose,Whole Blood 224 mg/dL (75-99)
--- NOTE | 2016-10-24 12:08 | P.DS ---
Providers Date of admission: 10/16/16 22:20 Expected date of discharge: 10/24/16 Attending physician: Kathe Brizuela Consults: 10/22/16 13:46 Consult Physician Routine Consulting Provider: [facility] Consult Reason/Comments: Post Interventional patient Do you want consulting provider notified?: Already Contacted [facility] Course: This is a 75-year-old female with past medical history noted below who presented to the hospital originally with chest discomfort and pain. She was admitted to the telemetry unit and was seen and evaluated by multiple specialists. Below is a list of her medical problems addressed during this hospitalization. 1. Non-ST elevation [place]: Status post left heart catheterization with successful stenting of the SVG to obtuse marginal branch using JEANNE. Continue medical management. Echocardiogram showed preserved ejection fraction and no significant wall motion abnormality. 2. Paroxysmal atrial fibrillation: new onset atrial fibrillation. Heart rate is well controlled. Patient will be anticoagulated with Eliquis per cardiology recommendations. 3. Coronary artery disease with history of bypass surgery in 2006 4. Uncontrolled type 2 diabetes mellitus: Resume home dose of insulin 5. Acute on chronic stage III B chronic kidney disease Creatinine baseline around 1.7 6. Mixed hyperlipidemia: not at goal. Patient was unable to tolerate statin in the past. I would start Zetia 10 mg daily 7. Essential hypertension: Blood pressure better controlled. Patient will be discharged home in a stable condition. Please refer to the electronic chart for further details about this hospitalization. Plan - Discharge Summary New Discharge Prescriptions: Apixaban [Eliquis] 2.5 mg PO BID #60 tablet Aspirin 81 mg PO DAILY #30 chew Ezetimibe [Zetia] 10 mg PO DAILY #30 tab Furosemide [Lasix] 20 mg PO DAILY #30 tab Isosorbide Mononitrate ER [Imdur] 60 mg PO DAILY #30 tab.er.24h Losartan [Cozaar] 50 mg PO DAILY #30 tab Discharge Medication List Cholecalciferol [Vitamin D3] 5,000 units PO DAILY 01/06/14 [History] Metoprolol Tartrate [Lopressor] 100 mg PO BID 01/06/14 [History] glipiZIDE [Glucotrol XL] 10 mg PO QAM 01/06/14 [History] Clopidogrel [Plavix] 75 mg PO DAILY #30 tab 02/04/14 [Rx] Insulin Glargine,Hum.rec.anlog [Williams Eldridge] 14 unit SQ QAM 04/29/16 [ History] Nitroglycerin Sl Tabs [Nitrostat] 0.4 mg SUBLINGUAL ONCE PRN 10/16/16 [History] Vitamin B Complex 1 cap PO DAILY 10/16/16 [History] Apixaban [Eliquis] 2.5 mg PO BID #60 tablet 10/24/16 [Rx] Aspirin 81 mg PO DAILY #30 chew 10/24/16 [Rx] Ezetimibe [Zetia] 10 mg PO DAILY #30 tab 10/24/16 [Rx] Furosemide [Lasix] 20 mg PO DAILY #30 tab 10/24/16 [Rx] Isosorbide Mononitrate ER [Imdur] 60 mg PO DAILY #30 tab.er.24h 10/24/16 [Rx] Losartan [Cozaar] 50 mg PO DAILY #30 tab 10/24/16 [Rx] Follow up Appointment(s)/Referral(s): Saloni Lloyd MD [Primary Care Provider] - 10/26/16 10:30 am Rufus Flynn MD [STAFF PHYSICIAN] - 11/01/16 3:45 pm [facility], [NON-STAFF] - Patient Instructions/Handouts: *Surgery [facility] - After Heart Catheterization - Filter Press Tender Head Instructions, Heart Failure (DC) Discharge Disposition: HOME SELF-CARE
[2016-10-24 12:14] VITALS: BP 114/77; PULSE 68
--- NOTE | 2016-10-26 15:49 | P.PN ---
Progress Note - Text This is an addendum to the progress note dictated by cardiology. Patient had acute diastolic congestive heart failure acute on chronic. DNP note has been reviewed, I agree with a documented findings and plan of care. Patient was seen and examined.
== END 2016-10-24 12:40 | disposition home health service (06) | DRG 246 ==
LOC: EC 20:24 → 6SEL 22:20
PROVIDERS: ADMIT Internal Medicine; ATTEND Internal Medicine
PROC: B213YZZ Fluoroscopy of Multiple Coronary Artery Bypass Grafts using Other Contrast (ICD-10-PCS; 2016-10-22)
PROC: B211YZZ Fluoroscopy of Multiple Coronary Arteries using Other Contrast (ICD-10-PCS; 2016-10-22)
PROC: 027035Z Dilation of Coronary Artery, One Artery with Two Drug-eluting Intraluminal Devices, Percutaneous Approach (ICD-10-PCS; principal; 2016-10-22 12:00)
PROC: 4A023N7 Measurement of Cardiac Sampling and Pressure, Left Heart, Percutaneous Approach (ICD-10-PCS; 2016-10-22 12:00)
DX: I21.4 Non-ST elevation (NSTEMI) myocardial infarction (principal); I50.33 Acute on chronic diastolic (congestive) heart failure; N17.9 Acute kidney failure, unspecified; I25.810 Atherosclerosis of coronary artery bypass graft(s) without angina pectoris; I13.0 Hypertensive heart and chronic kidney disease with heart failure and stage 1 through stage 4 chronic kidney disease, or unspecified chronic kidney disease; N39.0 Urinary tract infection, site not specified; E11.22 Type 2 diabetes mellitus with diabetic chronic kidney disease; E11.65 Type 2 diabetes mellitus with hyperglycemia; E83.42 Hypomagnesemia; E66.9 Obesity, unspecified; E78.2 Mixed hyperlipidemia; E87.5 Hyperkalemia; I25.2 Old myocardial infarction; I48.0 Paroxysmal atrial fibrillation; I73.9 Peripheral vascular disease, unspecified; N18.3 Chronic kidney disease, stage 3 (moderate); I25.10 Atherosclerotic heart disease of native coronary artery without angina pectoris; Z68.41 Body mass index [BMI] 40.0-44.9, adult; Z79.02 Long term (current) use of antithrombotics/antiplatelets; Z79.4 Long term (current) use of insulin; Z79.82 Long term (current) use of aspirin; Z79.899 Other long term (current) drug therapy; Z95.1 Presence of aortocoronary bypass graft; Z96.651 Presence of right artificial knee joint
CPT/HCPCS: 36415; 71020; 72050; 80048; 80053; 80061; 81001; 82550; 82553; 83036; 83735; 83880; 84443; 84484; 85025; 85610; 85730; 87086; 93005; 93306; 93455; 94760; 96365; 96368; 99291

== ENCOUNTER 2016-12-30 01:04 | Inpatient (IN) | payer MEDICARE ==
[2016-12-30] MEDS ORDERED: SODIUM CHLORIDE 0.9% 1,000 ML IV STA (01:06)
[2016-12-30] MEDS ORDERED: ASPIRIN 81 MG CHEW PO STA (01:06)
[2016-12-30] MEDS ORDERED: SODIUM CHLORIDE 0.9% 500 ML IV STA (01:06)
--- NOTE | 2016-12-30 01:08 | ED ---
General Adult HPI - General Stated complaint: chest pain Time Seen by Provider: 12/30/16 01:05 Source: RN notes reviewed, old records reviewed - History of Present Illness Initial comments: This is a 76-year-old female here for evaluation of chest pain. Anterior chest pain history of heart disease. Patient states pain feels exactly like prior MIs , murmurs concern from I, para 2 otherwise did feel different but this pain feels similar. Patient admits to mild shortness of breath. No help with nitro , pain started about an hour prior to arrival. No recent cardiac observation. No cough congestion or shortness of breath. - Related Data Home Medications Medication Instructions Recorded Confirmed Cholecalciferol [Vitamin D3] 5,000 units PO DAILY 01/06/14 12/30/16 Metoprolol Tartrate [Lopressor] 100 mg PO BID 01/06/14 12/30/16 glipiZIDE [Glucotrol XL] 20 mg PO QAM 01/06/14 12/30/16 Insulin Glargine,Hum.rec.anlog 17 unit SQ QAM 04/29/16 12/30/16 [Williams Eldridge] Nitroglycerin Sl Tabs [Nitrostat] 0.4 mg SUBLINGUAL ONCE PRN 10/16/16 12/30/16 Vitamin B Complex 1 cap PO DAILY 10/16/16 12/30/16 Losartan [Cozaar] 25 mg PO DAILY 12/30/16 12/30/16 Previous Rx's Medication Instructions Recorded Clopidogrel [Plavix] 75 mg PO DAILY #30 tab 02/04/14 Apixaban [Eliquis] 2.5 mg PO BID #60 tablet 10/24/16 Aspirin 81 mg PO DAILY #30 chew 10/24/16 Ezetimibe [Zetia] 10 mg PO DAILY #30 tab 10/24/16 Isosorbide Mononitrate ER [Imdur] 60 mg PO DAILY #30 tab.er.24h 10/24/16 Allergies Allergy/AdvReac Type Severity Reaction Status Date / Time No Known Allergies Allergy Verified 10/16/16 20:40 Review of Systems ROS Statement: Those systems with pertinent positive or pertinent negative responses have been documented in the HPI. ROS Other: All systems not noted in ROS Statement are negative. Past Medical History Past Medical History: Coronary Artery Disease (CAD), Diabetes Mellitus, Hyperlipidemia, Hypertension, Myocardial Infarction (MS), Vascular Disorder Additional Past Medical History / Comment(s): pt states has black eye from fall a couple weeks ago Last Myocardial Infarction Date:: 2005 History of Any Multi-Drug Resistant Organisms: None Reported Past Surgical History: Cholecystectomy, Coronary Bypass/CABG, Joint Replacement , Orthopedic Surgery Additional Past Surgical History / Comment(s): Panniculectomy. 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 Delarosa on 02/03/2014. Rt knee replacement x 2.OWEN LOWER EXT RUNOFF/NATHANIEL RT COMMON FEMORAL ARTERY ANGIOGRAM 05-25-16 .RT FEM POP Past Anesthesia/Blood Transfusion Reactions: No Reported Reaction Past Psychological History: No Psychological Hx Reported Smoking Status: Never smoker Past Alcohol Use History: None Reported Additional Past Alcohol Use History / Comment(s): .... Past Drug Use History: None Reported - Past Family History Father Additional Family Medical History / Comment(s): at age 62 due to motor vehicle accident Mother Family Medical History: No Reported History Additional Family Medical History / Comment(s): PARENTS 18 MONTHS APRT BOTH IN A MVA. MOM AT AGE 58 AND DAD WAS 62 General Exam General appearance: alert, in no apparent distress Head exam: Present: atraumatic, normocephalic, normal inspection Eye exam: Present: normal appearance, PERRL, EOMI. Absent: scleral icterus, conjunctival injection, periorbital swelling ENT exam: Present: normal exam, mucous membranes moist Neck exam: Present: normal inspection. Absent: tenderness, meningismus, lymphadenopathy Respiratory exam: Present: normal lung sounds bilaterally. Absent: respiratory distress, wheezes, rales, rhonchi, stridor Cardiovascular Exam: Present: regular rate, normal rhythm, normal heart sounds. Absent: systolic murmur, diastolic murmur, rubs, gallop, clicks GI/Abdominal exam: Present: soft, normal bowel sounds. Absent: distended, tenderness, guarding, rebound, rigid Extremities exam: Present: normal inspection, full ROM, normal capillary refill. Absent: tenderness, pedal edema, joint swelling, calf tenderness Back exam: Present: normal inspection Neurological exam: Present: alert, oriented X3, CN II-XII intact Psychiatric exam: Present: normal affect, normal mood Skin exam: Present: warm, dry, intact, normal color. 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 ] Respiratory 26 H 20 20 Rate Blood Pressure 243/105 Blood Pressure 197/79 212/91 [Left Arm] O2 Sat by Pulse 99 100 Oximetry 12/30/16 12/30/16 12/30/16 02:00 02:39 02:56 Temperature Pulse Rate 92 Pulse Rate [ 109 H 97 Game Engineer ] Respiratory 18 Rate Blood Pressure 172/79 Blood Pressure 214/93 224/100 [Left Arm] O2 Sat by Pulse 96 Oximetry EKG Findings - EKG Comments: EKG Findings:: EKG shows sinus tachycardia rate of 116, P136, QRS 80, QTC 455 Medical Decision Making - Medical Decision Making 76 female to the ER for evaluation any chest pain, history of heart disease and heart attack, patient coming in with severe anterior chest pain just like prior MS, patient with mild elevated troponin at this time, we'll anticoagulate, given aspirin we'll admit for cardiac admission. - Lab Data Result diagrams: 12/30/16 01:20 12/30/16 01:20 - Radiology Data Radiology results: report reviewed (Chest x-ray is negative for acute disease), image reviewed Critical Care Time Critical Care Time: Yes Total Critical Care Time: 31 Disposition Clinical Impression: Acute non-ST segment elevation myocardial infarction (STEMI) following previous myocardial infarction, Unstable angina pectoris Disposition: ADMITTED IP TO THIS HOSP Condition: Serious
[2016-12-30 01:28] LABS: Basophils # (A) 0.1 k/uL (0-0.2); Basophils % (A) 1 %; CH 30.3; CHCM 32.2; Eosinophils # (A) 0.2 k/uL (0-0.7); Eosinophils % (A) 2 %; HCT 35.8 % (34.0-46.0); HDW 2.67; HGB 11.7 gm/dL (11.4-16.0); Luc # (Auto) 0.14; Luc % (Auto) 2; Lymphocytes # (A) 1.2 k/uL (1.0-4.8); Lymphocytes % (A) 15 %; MCH 30.9 pg (25.0-35.0); MCHC 32.7 g/dL (31.0-37.0); MCV 94.3 fL (80.0-100.0); Mean Platelet Volume 8.1; Monocytes # (A) 0.5 k/uL (0-1.0); Monocytes % (A) 6 %; Neutrophils # (A) 6.2 k/uL (1.3-7.7); Neutrophils % (A) 75 %; RDW 13.5 % (11.5-15.5); WBC 8.2 k/uL (3.8-10.6); WBC (Perox) 7.49
[2016-12-30 01:38] LABS: Calcium 9.5 mg/dL (8.4-10.2); Magnesium 1.4 mg/dL (1.6-2.3); Potassium 4.2 mmol/L (3.5-5.1); Prothrombin Time 10.2 sec (9.0-12.0); Total Bilirubin 0.3 mg/dL (0.2-1.3); Total Protein 6.6 g/dL (6.3-8.2)
[2016-12-30 01:49] LABS: Partial Thromboplastin Time 21.3 sec (22.0-30.0)
[2016-12-30] MEDS: NITROGLYCERIN SL TABS 0.4 MG TAB SUBLINGUAL PRN ×2 (01:51→02:02)
--- NOTE | 2016-12-30 02:02 | XR ---
EXAM: XR Chest, 2 Views CLINICAL HISTORY: Reason: Chest Pain TECHNIQUE: Frontal and lateral views of the chest. COMPARISON: Chest x-ray dated 10/16/16 FINDINGS: Lungs: Prominent interstitial thickening suggestive of pulmonary edema. Pulmonary vascular congestion. Findings may reflect failure. Pleural space: Unremarkable. No pneumothorax. Heart: Heart size is enlarged. Mediastinum: Unremarkable. Bones/joints: Sternotomy wires. Degenerative changes of the left shoulder. Degenerative changes of the spine. IMPRESSION: Prominent interstitial thickening suggestive of pulmonary edema. Pulmonary vascular congestion. Findings may reflect failure.
[2016-12-30 02:13] LABS: Creatine Kinase MB 2.6 ng/mL (0.0-2.4); Troponin I 0.041 ng/mL (0.000-0.034)
[2016-12-30] MEDS ORDERED: LABETALOL 5 MG/ML VIAL MDV IVP STA (02:23)
[2016-12-30] MEDS ORDERED: HEPARIN SODIUM,PORCINE 5,000 UNIT/ML 1 ML VIAL IV PRN (02:44)
[2016-12-30] MEDS ORDERED: HEPARIN SODIUM,PORCINE 5,000 UNIT/ML 1 ML VIAL IV ONE (02:44)
[2016-12-30] MEDS ORDERED: HEPARIN SODIUM,PORCINE/D5W PMX 25,000 UNIT in DEXTROSE/WATER 1 500ML.BAG IV SCH (02:45)
[2016-12-30 03:48] VITALS: BMI 42.1
[2016-12-30 06:32] LABS: Glucose,Whole Blood 285 mg/dL (75-99)
[2016-12-30] MEDS: INSULIN LISPRO (humaLOG) 300 UNIT/3 ML VIAL SQ SCH ×4 (06:44→22:03)
--- NOTE | 2016-12-30 08:33 | P.PN ---
Progress Note - Text This is an addendum to be added to the discharge date 10/26/2016. Patient had diastolic congestive heart failure acute on chronic. DNP note has been reviewed, I agree with a documented findings and plan of care. Patient was seen and examined.
[2016-12-30] MEDS ORDERED: METOPROLOL TARTRATE 50 MG TAB PO SCH (09:00)
--- NOTE | 2016-12-30 09:00 | P.CRDCN ---
History of Present Illness Consult date: 12/30/16 Requesting physician: Saloni Lloyd Consult reason: non-Q-wave LA Chief complaint: Chest pain History of present illness: This is a pleasant 76-year-old female who follows regularly with Dr. Delarosa in the office. She has a known history of coronary artery disease with prior bypass surgery in 2006 at which time she underwent a four-vessel bypass, GAY to the LAD, saphenous vein graft to the diagonal 1, OM1, and RCA. Patient also has PAD with prior PTCA of the mid right popliteal and balloon angioplasty of the proximal right anterior tibial artery in April of last year. Patient also underwent successful stenting of the SVG to the obtuse marginal in September of this year. Patient also has history of hypertension, hyperlipidemia, diabetes and kidney disease. She presents to the hospital on this occasion with symptoms of chest pressure and heaviness with radiation to her jaw, positive associated shortness of breath. She dates that she took a sublingual nitroglycerin with no relief of symptoms. Approximately one and a half weeks ago she had another episode of similar discomfort relieved with nitroglycerin. EKG on arrival here showed a sinus tachycardia with nonspecific ST-T wave changes. Chest x-ray reveals prominent interstitial thickening suggestive of pulmonary edema and pulmonary vascular congestion. CBC is normal. Sodium 138, potassium 4.2, BUN 43, creatinine 1.4, magnesium 1.4, initial troponin 0.041. Blood pressure on arrival here to 43/105, heart rate in the 1 teens, 99% on 2 L of oxygen. Let pressure this morning 160/80 with a heart rate in the low 100s. At the time of my examination this morning she is currently chest pain-free. Past Medical History Past Medical History: Coronary Artery Disease (CAD), Diabetes Mellitus, Hyperlipidemia, Hypertension, Myocardial Infarction (LA), Vascular Disorder Additional Past Medical History / Comment(s): pt states has black eye from fall a couple weeks ago Last Myocardial Infarction Date:: 2005 History of Any Multi-Drug Resistant Organisms: None Reported Past Surgical History: Cholecystectomy, Coronary Bypass/CABG, Joint Replacement , Orthopedic Surgery Additional Past Surgical History / Comment(s): Panniculectomy. Artherectomy of the right popliteal and [place] REC[facility] by Dr. Delarosa on 02/03/2014. Rt knee replacement x 2.OWEN LOWER EXT RUNOFF/NATHANIEL RT COMMON FEMORAL ARTERY ANGIOGRAM 05-25-16 .RT FEM POP Past Anesthesia/Blood Transfusion Reactions: No Reported Reaction Smoking Status: Never smoker - Past Family History Father Additional Family Medical History / Comment(s): at age 62 due to motor vehicle accident Mother Family Medical History: No Reported History Additional Family Medical History / Comment(s): PARENTS 18 MONTHS APRT BOTH IN A MVA. MOM AT AGE 58 AND DAD WAS 62 Medications and Allergies Home Medications Medication Instructions Recorded Confirmed Type Cholecalciferol [Vitamin D3] 5,000 units PO DAILY 01/06/14 12/30/16 History Metoprolol Tartrate [Lopressor] 100 mg PO BID 01/06/14 12/30/16 History glipiZIDE [Glucotrol XL] 10 mg PO QAM 01/06/14 12/30/16 History Insulin Glargine,Hum.rec.anlog 17 unit SQ QAM 04/29/16 12/30/16 History [[place] Solostar] Nitroglycerin Sl Tabs [Nitrostat] 0.4 mg SUBLINGUAL ONCE PRN 10/16/16 12/30/16 History Vitamin B Complex 1 cap PO DAILY 10/16/16 12/30/16 History Losartan [Cozaar] 25 mg PO DAILY 12/30/16 12/30/16 History Allergies Allergy/AdvReac Type Severity Reaction Status Date / Time No Known Allergies Allergy Verified 10/16/16 20:40 Physical Exam Vitals: Vital Signs Temp Pulse Pulse Pulse Resp BP BP 12/30/16 04:00 96.7 F L 105 H 18 161/82 12/30/16 02:56 92 18 172/79 12/30/16 02:39 97 224/100 12/30/16 02:00 109 H 214/93 12/30/16 01:51 110 H 20 212/91 12/30/16 01:29 108 H 20 197/79 12/30/16 01:15 98.1 F 114 H 26 H 243/105 Pulse Ox 12/30/16 04:00 99 12/30/16 02:56 96 12/30/16 02:39 12/30/16 02:00 12/30/16 01:51 12/30/16 01:29 100 12/30/16 01:15 99 Intake and Output 12/29/16 12/30/1617 22:59 06:59 14:59 Intake Total 200 Balance 200 Intake: IV 200 Sodium Chloride 0.9% 1, 200 000 ml @ 100 mls/hr IV . Q10H STA Rx#:[id number] Other: Voiding Method Bedside Commode Weight 104.6 kg PHYSICAL EXAMINATION: HEENT: Head is atraumatic, normocephalic. Pupils equal, round. Neck is supple. There is no elevated jugular venous pressure. HEART EXAMINATION: Heart S1, S2 normal. No murmur or gallop heard. CHEST EXAMINATION: Circumflex clear with diminished air entry to bilateral bases. ABDOMEN: Soft, nontender. Bowel sounds are heard. No organomegaly noted. EXTREMITIES: 2+ peripheral pulses with trace evidence of peripheral edema and no calf tenderness noted. NEUROLOGIC patient is awake, alert and oriented -3. . Results 12/30/16 01:20 12/30/16 01:20 Cardiac Enzymes 12/30/16 12/30/16 Range/Units 01:20 01:20 AST 23 (14-36) U/L CK-MB (CK-2) 2.6 H* (0.0-2.4) ng/mL Troponin I 0.041 H* (0.000-0.034) ng/mL Coagulation 12/30/16 12/30/16 Range/Units 01:20 08:15 PT 10.2 (9.0-12.0) sec APTT 21.3 L 44.5 H (22.0-30.0) sec CBC 12/30/16 Range/Units 01:20 WBC 8.2 (3.8-10.6) k/uL RBC 3.80 (3.80-5.40) m/uL Hgb 11.7 (11.4-16.0) gm/dL Hct 35.8 (34.0-46.0) % Plt Count 188 (150-450) k/uL Comprehensive Metabolic Panel 12/30/16 Range/Units 01:20 Sodium 138 (137-145) mmol/L Potassium 4.2 (3.5-5.1) mmol/L Chloride 106 (98-107) mmol/L Carbon Dioxide 19 L (22-30) mmol/L BUN 43 H (7-17) mg/dL Creatinine 1.40 H (0.52-1.04) mg/dL Glucose 341 H (74-99) mg/dL Calcium 9.5 (8.4-10.2) mg/dL AST 23 (14-36) U/L ALT 31 (9-52) U/L Alkaline Phosphatase 131 H (38-126) U/L Total Protein 6.6 (6.3-8.2) g/dL Albumin 3.9 (3.5-5.0) g/dL Current Medications Generic Name Dose Route Start Last Admin Trade Name Jacky PRN Reason Stop Dose Admin Aspirin 325 mg 12/31/16 09:00 Aspirin PO DAILY [facility] Heparin Sodium (Porcine) 0 unit 12/30/16 02:44 Heparin IV PER PROTOCOL PRN Low PTT Protocol Sodium Chloride 1,000 mls @ 100 mls/hr 12/30/16 01:06 12/30/16 02:36 Saline 0.9% IV 12/30/16 11:05 100 mls/hr .Q10H STA Administration Heparin Sodium/Dextrose 25,000 500 mls @ 20.03 mls/hr 12/30/16 02:45 03:06 unit/ IV Solution IV 11.08 units/kg/hr .Q24H JEANIE 20 mls/hr Protocol Administration 11.1 UNITS/KG/HR Insulin Human Lispro 0 unit 12/30/16 07:30 12/30/16 06:44 Humalog SQ Not Given ACHS [facility] Protocol Metoprolol Tartrate 50 mg 12/30/16 09:00 Lopressor PO BID [facility] Nitroglycerin 0.4 mg 12/30/16 01:06 12/30/16 02:02 Nitrostat SUBLINGUAL 0.4 mg Q5M PRN Administration Chest Pain Intake and Output 12/29/16 12/30/16 12/30/16 22:59 06:59 14:59 Intake Total 200 Balance 200 Intake: IV 200 Sodium Chloride 0.9% 1, 200 000 ml @ 100 mls/hr IV . Q10H STA Rx#:[id number] Other: Voiding Method Bedside Commode Weight 104.6 kg 12/30/16 01:20 12/30/16 01:20 EKG Interpretations (text) EKG shows a sinus tachycardia with nonspecific ST-T wave changes. Assessment and Plan Plan: Assessment and plan #1 non-ST elevation myocardial infarction #2 accelerated hypertension #3 known history of coronary artery disease with prior coronary artery bypass grafting surgery, most recently patient underwent angioplasty with stenting of the SVG to the OM in September of this year. #4 PAD with prior PTCA of the right popliteal and right anterior tibial artery # 5 hypertension #6 hyperlipidemia #7 diabetes #8 acute on chronic renal failure #9 paroxysmal atrial fibrillation Plan We will obtain a repeat echocardiogram with Doppler study. Echo with Doppler study performed in September revealed an ejection fraction of 50-55% with basal inferior and inferior septal hypokinesia. Will resume the patient's Plavix, continue IV heparin, resume Cozaar, Imdur, Zetia. We will also obtain 2 subsequent troponins. Patient has been advised that she may need to undergo cardiac catheterization, the risks and benefits again were explained to the patient in detail. Further recommendations to follow. DNP note has been reviewed, I agree with a documented findings and plan of care. Patient was seen and examined.
[2016-12-30] MEDS ORDERED: ASPIRIN 81 MG CHEW PO SCH (09:15)
[2016-12-30 09:29] LABS: Creatine Kinase MB 36.7 ng/mL (0.0-2.4); Troponin I 15.4 ng/mL (0.000-0.034)
[2016-12-30] MEDS ORDERED: SODIUM CHLORIDE 0.9% 1,000 ML in EMPTY BAG 1 BAG IV ONE (09:48)
[2016-12-30] MEDS ORDERED: NITROGLYCERIN SL TABS 0.4 MG TAB SUBLINGUAL PRN (09:48)
[2016-12-30] MEDS ORDERED: ALPRAZolam 0.5 MG TAB PO PRN (09:48)
[2016-12-30] MEDS ORDERED: ALPRAZolam 0.25 MG TAB PO PRN (09:48)
[2016-12-30] MEDS ORDERED: ASPIRIN 325 MG TAB PO STA (09:50)
[2016-12-30] MEDS ORDERED: ATORVASTATIN 80 MG TAB PO STA (09:51)
[2016-12-30] MEDS ORDERED: Magnesium Replacement Protocol 1 EACH MISC MISCELLANE PRN (09:58)
[2016-12-30] MEDS ORDERED: Potassium Replacement Protocol 1 EACH MISC MISCELLANE PRN (09:58)
[2016-12-30] MEDS: CLOPIDOGREL 75 MG TAB PO SCH (11:33)
[2016-12-30] MEDS: EZETIMIBE 10 MG TAB PO SCH (11:33)
[2016-12-30] MEDS: METOPROLOL TARTRATE 50 MG TAB PO SCH ×2 (11:33→20:34)
[2016-12-30] MEDS: LOSARTAN 25 MG TAB PO SCH (11:33)
[2016-12-30] MEDS: ISOSORBIDE MONONITRATE ER 60 MG TAB.ER.24H PO SCH (11:33)
[2016-12-30 11:36] LABS: Glucose,Whole Blood 198 mg/dL (75-99)
--- NOTE | 2016-12-30 11:36 | P.HPIM ---
History of Present Illness H&P Date: 12/30/16 Chief Complaint: Chest pain This is a 76-year-old female with complex past medical history noted below significant for coronary artery disease status post bypass surgery in 2006 who was recently admitted to the hospital and underwent angioplasty with stenting of the SVG to the obtuse marginal graft. Patient was doing fairly well up until yesterday when seizures started having pain that she described as sharp starting in her neck and jaw and subsequently going down to the middle of her chest. She said that her pain was 10 out of 10 in severity. She was concerned and decided to come to the emergency room. In the emergency room twelve-lead EKG showed nonspecific ST segment changes with no acute ischemic changes noted. Patient was started on IV heparin and her repeat troponin was significantly elevated. 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 She is currently chest pain free. Review of Systems Review of system: 14 points review of systems were obtained and were negative except to what were mentioned in the HPI. Past Medical History Past Medical History: Coronary Artery Disease (CAD), Diabetes Mellitus, Hyperlipidemia, Hypertension, Myocardial Infarction (DC), Vascular Disorder Additional Past Medical History / Comment(s): pt states has black eye from fall a couple weeks ago Last Myocardial Infarction Date:: 2005 History of Any Multi-Drug Resistant Organisms: None Reported Past Surgical History: Cholecystectomy, Coronary Bypass/CABG, Joint Replacement , Orthopedic Surgery Additional Past Surgical History / Comment(s): Panniculectomy. 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 Rt knee replacement x 2.OWEN LOWER EXT RUNOFF/NATHANIEL RT COMMON FEMORAL ARTERY ANGIOGRAM 05-25-16 .RT FEM POP Past Anesthesia/Blood Transfusion Reactions: No Reported Reaction Smoking Status: Never smoker - Past Family History Father Additional Family Medical History / Comment(s): at age 62 due to motor vehicle accident Mother Family Medical History: No Reported History Additional Family Medical History / Comment(s): PARENTS 18 MONTHS APRT BOTH IN A MVA. MOM AT AGE 58 AND DAD WAS 62 Medications and Allergies Home Medications Medication Instructions Recorded Confirmed Type Cholecalciferol [Vitamin D3] 5,000 units PO DAILY 01/06/14 12/30/16 History Metoprolol Tartrate [Lopressor] 100 mg PO BID 01/06/14 12/30/16 History glipiZIDE [Glucotrol XL] 20 mg PO QAM 01/06/14 12/30/16 History Insulin Glargine,Hum.rec.anlog 17 unit SQ QAM 04/29/16 12/30/16 History [[place] Solostar] Nitroglycerin Sl Tabs [Nitrostat] 0.4 mg SUBLINGUAL ONCE PRN 10/16/16 12/30/16 History Vitamin B Complex 1 cap PO DAILY 10/16/16 12/30/16 History Losartan [Cozaar] 25 mg PO DAILY 12/30/16 12/30/16 History Allergies Allergy/AdvReac Type Severity Reaction Status Date / Time No Known Allergies Allergy Verified 10/16/16 20:40 Physical Exam Vitals: Vital Signs Temp Pulse Pulse Pulse Resp BP BP 12/30/16 08:00 97.0 F L 90 18 164/72 12/30/16 04:00 96.7 F L 105 H 18 161/82 12/30/16 02:56 92 18 172/79 12/30/16 02:39 97 224/100 12/30/16 02:00 109 H 214/93 12/30/16 01:51 110 H 20 212/91 12/30/16 01:29 108 H 20 197/79 12/30/16 01:15 98.1 F 114 H 26 H 243/105 Pulse Ox 12/30/16 08:00 97 12/30/16 04:00 99 12/30/16 02:56 96 12/30/16 02:39 12/30/16 02:00 12/30/16 01:51 12/30/16 01:29 100 12/30/16 01:15 99 Intake and Output 12/29/16 12/30/16 12/30/16 22:59 06:59 14:59 Intake Total 200 Output Total 400 Balance 200 -400 Intake: IV 200 Sodium Chloride 0.9% 1, 200 000 ml @ 100 mls/hr IV . Q10H STA Rx#:[id number] Output: Urine 400 Other: Voiding Method Bedside Commode Bedside Commode Weight 104.6 kg General: The patient is awake and alert, in no distress Eye: there is normal conjunctiva bilaterally. Neck: The neck is supple, there is no JVD. Cardiovascular: Normal S1-S2, no S3-S4, no murmurs. Respiratory: Lungs clear to auscultation bilaterally Gastrointestinal: Abdomen is soft, nontender Musculoskeletal: There is no pedal edema. Neurological:. Speech is normal. Skin: Skin is warm and dry Results CBC & Chem 7: 12/30/16 01:20 12/30/16 01:20 Labs: Abnormal Lab Results - Last 24 Hours (Table) 12/30/16 12/30/16 12/30/16 Range/Units 01:20 01:20 01:20 APTT 21.3 L (22.0-30.0) sec Carbon Dioxide 19 L (22-30) mmol/L BUN 43 H (7-17) mg/dL Creatinine 1.40 H (0.52-1.04) mg/dL Glucose 341 H (74-99) mg/dL POC Glucose (mg/dL) (75-99) mg/dL Magnesium 1.4 L (1.6-2.3) mg/dL Alkaline Phosphatase 131 H (38-126) U/L Total Creatine Kinase (30-135) U/L CK-MB (CK-2) 2.6 H* (0.0-2.4) ng/mL Troponin I 0.041 H* (0.000-0.034) ng/mL 12/30/16 12/30/16 12/30/16 Range/Units 06:13 08:15 08:15 APTT 44.5 H (22.0-30.0) sec Carbon Dioxide (22-30) mmol/L BUN (7-17) mg/dL Creatinine (0.52-1.04) mg/dL Glucose (74-99) mg/dL POC Glucose (mg/dL) 285 H (75-99) mg/dL Magnesium (1.6-2.3) mg/dL Alkaline Phosphatase (38-126) U/L Total Creatine Kinase 492 H (30-135) U/L CK-MB (CK-2) 36.7 H* (0.0-2.4) ng/mL Troponin I 15.400 H* (0.000-0.034) ng/mL Thrombosis Risk Factor Assmnt - Choose All That Apply Any of the Below Risk Factors Present?: Yes Each Factor Represents 1 point: Obesity (BMI >25) Each Risk Factor Represents 3 Points: Age 75 years or older Thrombosis Risk Factor Assessment Total Risk Factor Score: 4 Thrombosis Risk Factor Assessment Level: Moderate Risk Assessment and Plan Plan: 1. Non-ST elevation DC: Patient is currently on optimal medical management. Plan for left heart cath today. Status post recent left heart catheterization with successful stenting of the SVG to obtuse marginal branch using JEANNE in September 2016. Echocardiogram showed preserved ejection fraction and no significant wall motion abnormality. 2. Paroxysmal atrial fibrillation: Heart rate is well controlled. Patient on Eliquis for anticoagulation 3. Coronary artery disease with history of bypass surgery in 2006 4. Uncontrolled type 2 diabetes mellitus: Resume home dose of insulin 5. Acute on chronic stage III B chronic kidney disease Creatinine baseline around 1.7 6. Mixed hyperlipidemia: not at goal. Patient was unable to tolerate statin in the past. Continue nikos 7. Essential hypertension: Blood pressure not well controlled. We'll continue to monitor closely and adjust her regimen accordingly
--- NOTE | 2016-12-30 13:01 | ECHOF ---
Referral Reason:assess lvf MEASUREMENTS -------- HEIGHT: 157.5 cm WEIGHT: 104.3 kg BP: 164/72 RVIDd: 2.6 cm (< 3.3) IVSd: 1.3 cm (0.6 - 1.1) LVIDd: 4.8 cm (3.9 - 5.3) LVPWd: 1.2 cm (0.6 - 1.1) IVSs: 1.6 cm LVIDs: 4.0 cm LVPWs: 1.4 cm LAESV Index (A-L): 29.21 ml/m Ao Diam: 3.3 cm (2.0 - 3.7) AV Cusp: 1.3 cm (1.5 - 2.6) LA Diam: 4.0 cm (2.7 - 3.8) MV E Vadim: 1.63 m/s MV DecT: 225 ms MV A Vadim: 1.17 m/s MV E/A Ratio: 1.39 RAP: 5.00 mmHg RVSP: 69.47 mmHg FINDINGS -------- Sinus rhythm. This was a technically difficult study with suboptimal views. There is mild concentric left ventricular hypertrophy. Overall left ventricular systolic function is moderate-severely impaired with, an EF between 30 - 35 %. The right ventricle is normal in size and function. LA is midly dilated 29-33ml/m2. The right atrium is normal in size. 1.5mg of Definity was utilized for enhancement of images Aortic valve is trileaflet and is mildly thickened. There is no evidence of aortic regurgitation. There is no evidence of aortic stenosis. The mitral valve leaflets are mildly thickened. Mild mitral annular calcification present. Moderate mitral regurgitation is present. [id number] tricuspid regurgitation present. There is severe pulmonary hypertension. The right ventricular systolic pressure, as measured by Doppler, is 69.47mmHg. Trace/mild (physiologic) pulmonic regurgitation. The aortic root size is normal. Normal inferior vena cava with normal inspiratory collapse consistent with estimated right atrial pressure of 5 mmHg. The pericardium is normal. There is no pericardial effusion. CONCLUSIONS -------- 1. Sinus rhythm. 2. Moderate mitral regurgitation is present. 3. [id number] tricuspid regurgitation present. 4. There is severe pulmonary hypertension. 5. The right ventricular systolic pressure, as measured by Doppler, is 69.47mmHg. 6. Trace/mild (physiologic) pulmonic regurgitation. 7. The aortic root size is normal. 8. There is no pericardial effusion. 9. This was a technically difficult study with suboptimal views. 10. There is mild concentric left ventricular hypertrophy. 11. Overall left ventricular systolic function is moderate-severely impaired with, an EF between 30 - 35 %. 12. LA is midly dilated 29-33ml/m2. 13. 1.5mg of Definity was utilized for enhancement of images 14. Aortic valve is trileaflet and is mildly thickened. 15. The mitral valve leaflets are mildly thickened. 16. Mild mitral annular calcification present. CANDY CUTTER HAND: Jeff Bentley RDCS
[2016-12-30] MEDS ORDERED: diphenhydrAMINE 50 MG/ML 1 ML VIAL ONE (13:03)
[2016-12-30] MEDS ORDERED: LIDOCAINE 2% INJ 20 MG/ML (20 ML MDV) ONE (13:03)
[2016-12-30] MEDS ORDERED: MIDAZOLAM 2 MG/2 ML VIAL ONE (13:03)
[2016-12-30] MEDS ORDERED: IV FLUID CONTINUATION 1,000 ML IV ONE (13:20)
[2016-12-30] MEDS ORDERED: diphenhydrAMINE 50 MG/ML 1 ML VIAL IVP ONE (13:22)
[2016-12-30] MEDS: MIDAZOLAM 2 MG/2 ML VIAL IVP ONE ×2 (13:22→13:27)
[2016-12-30] MEDS ORDERED: LIDOCAINE 2% INJ 20 MG/ML SQ ONE (13:25)
[2016-12-30] MEDS ORDERED: BIVALIRUDIN BOLUS 250 MG/50 ML IV ONE (14:06)
[2016-12-30] MEDS ORDERED: niCARdipine 25 MG/10 ML VIAL ONE (14:08)
[2016-12-30] MEDS ORDERED: BIVALIRUDIN 250 MG in SODIUM CHLORIDE 0.9% 50 ML IV ONE (14:08)
[2016-12-30] MEDS ORDERED: CLOPIDOGREL 75 MG TAB ONE (14:23)
[2016-12-30] MEDS ORDERED: CLOPIDOGREL 75 MG TAB PO ONE (14:25)
[2016-12-30] MEDS ORDERED: IODIXANOL 320 MG/ML 100 ML INTRAARTER ONE (14:26)
[2016-12-30] MEDS ORDERED: ZOLPIDEM 5 MG TAB PO PRN (14:33)
[2016-12-30] MEDS ORDERED: MAG HYDROX/AL HYDROX/SIMETH 30 ML CUP PO PRN (14:33)
[2016-12-30] MEDS ORDERED: RX INFO: IV CONTRAST WAS GIVEN 1 EACH MISC MISCELLANE PRN (14:33)
[2016-12-30] MEDS ORDERED: ATROPINE SULFATE 0.1 MG/ML 10ML SYRINGE IV PRN (14:33)
[2016-12-30] MEDS ORDERED: amLODIPine 5 MG TAB PO STA (16:14)
[2016-12-30] MEDS ORDERED: cloNIDine 0.2 MG/24HR PATCH 1 PATCH PATCH TRANSDERM SCH (16:30)
[2016-12-30 16:46] LABS: Glucose,Whole Blood 125 mg/dL (75-99)
[2016-12-30] MEDS: SODIUM CHLORIDE 0.9% 1,000 ML IV SCH (16:57)
[2016-12-30] MEDS: APIXABAN 2.5 MG TABLET PO SCH (20:34)
[2016-12-30 20:41] LABS: Glucose,Whole Blood 75 mg/dL (75-99)
[2016-12-30] MEDS: MAGNESIUM SULFATE-D5W PMX 1 GM in DEXTROSE/WATER 1 100ML.BAG IVPB SCH ×2 (22:03→22:58)
[2016-12-31] MEDS: SODIUM CHLORIDE 0.9% 1,000 ML IV SCH (00:27)
[2016-12-31] MEDS: MAGNESIUM SULFATE-D5W PMX 1 GM in DEXTROSE/WATER 1 100ML.BAG IVPB SCH (00:27)
[2016-12-31 06:15] LABS: Basophils % (A) 0 %; CH 30.2; CHCM 31.9; Eosinophils # (A) 0.2 k/uL (0-0.7); Eosinophils % (A) 2 %; HCT 33.1 % (34.0-46.0); HDW 2.66; HGB 10.8 gm/dL (11.4-16.0); Luc # (Auto) 0.14; Luc % (Auto) 2; Lymphocytes # (A) 0.7 k/uL (1.0-4.8); Lymphocytes % (A) 8 %; MCH 30.8 pg (25.0-35.0); MCHC 32.4 g/dL (31.0-37.0); MCV 94.9 fL (80.0-100.0); Mean Platelet Volume 8.1; Monocytes # (A) 0.5 k/uL (0-1.0); Monocytes % (A) 6 %; Neutrophils # (A) 7.1 k/uL (1.3-7.7); Neutrophils % (A) 83 %; RBC 3.49 m/uL (3.80-5.40); RDW 13.7 % (11.5-15.5); WBC 8.6 k/uL (3.8-10.6); WBC (Perox) 8.91
[2016-12-31 06:22] LABS: INR 1.1 (<1.1); Prothrombin Time 10.9 sec (9.0-12.0)
[2016-12-31 06:25] LABS: Calcium 8.5 mg/dL (8.4-10.2); Magnesium 2.1 mg/dL (1.6-2.3); Potassium 4.4 mmol/L (3.5-5.1)
[2016-12-31 06:28] LABS: Glucose,Whole Blood 180 mg/dL (75-99)
[2016-12-31] MEDS: glipiZIDE 10 MG TAB PO SCH ×2 (06:29→17:38)
[2016-12-31] MEDS: INSULIN LISPRO (humaLOG) 300 UNIT/3 ML VIAL SQ SCH ×4 (06:31→21:55)
[2016-12-31] MEDS ORDERED: amLODIPine 5 MG TAB PO SCH (09:00)
[2016-12-31] MEDS ORDERED: ASPIRIN 325 MG TAB PO SCH (09:00)
[2016-12-31] MEDS: B COMPLEX-VIT C-VIT E-ZINC 1 EACH TAB PO SCH (09:11)
[2016-12-31] MEDS: EZETIMIBE 10 MG TAB PO SCH (09:12)
[2016-12-31] MEDS: APIXABAN 2.5 MG TABLET PO SCH ×2 (09:12→21:55)
[2016-12-31] MEDS: ISOSORBIDE MONONITRATE ER 60 MG TAB.ER.24H PO SCH (09:12)
[2016-12-31] MEDS: ASPIRIN 325 MG TAB PO SCH (09:12)
[2016-12-31] MEDS: CLOPIDOGREL 75 MG TAB PO SCH (09:12)
[2016-12-31] MEDS: LOSARTAN 25 MG TAB PO SCH (09:13)
[2016-12-31] MEDS: CHOLECALCIFEROL 1,000 UNIT TAB PO SCH (09:13)
[2016-12-31] MEDS: METOPROLOL TARTRATE 50 MG TAB PO SCH ×2 (09:13→21:55)
[2016-12-31] MEDS: INSULIN GLARGINE 100 UNIT/ML 10 ML VIAL SQ SCH (09:16)
--- NOTE | 2016-12-31 11:59 | PCN ---
DATE: 12/30/2016 PERFORMING PHYSICIAN: Dr. Rufus Flynn MD, Hospice Executive Director. PROCEDURE PERFORMED: 1. Selective left and right coronary angiogram. 2. SVG angiogram x3. 3. Left internal mammary artery angiogram. 4. Successful stenting of the SVG to right coronary artery using 3.5 x 15 Xience JEANNE with good angiographic results. INDICATIONS: This is a pleasant 76-year-old female patient who I follow in the office as an outpatient who is known to have coronary artery disease and prior coronary artery bypass grafting where she received GAY to LAD , SVG to diagonal, SVG to diagonal, SVG to OM and SVG to RCA who underwent in September 2016 stenting of the SVG to OM presented to the hospital with chest discomfort and was ruled in for acute non-ST elevation myocardial infarction. She was seen and evaluated by Dr. Krishna Hoover who recommended proceeding with heart catheterization in view of the ongoing chest discomfort, ischemic EKG changes as well as abnormal cardiac enzymes. COMPLICATIONS: None. LEVEL OF SEDATION: Moderate. APPROACH: Left common femoral artery. PROCEDURE DESCRIPTION: After obtaining an informed consent, the patient was brought to the [facility]. The left common femoral artery was cannulated using micropuncture technique, the micropuncture wire passed easily. I placed 6 English sheath in the left common femoral artery. Subsequently I did selective left and right coronary angiography ( )and JR4 catheters. I did SVG angiogram x3 using the JR4 catheter. The left internal mammary artery angiogram was performed using an IM catheter. After that I decided to intervene on the SVG to RCA. Please see a separate paragraph for that. SELECTIVE CORONARY ANGIOGRAM: 1. The left main is heavily calcified and severely diseased. It bifurcates into the left anterior descending artery as well as left circumflex. 2. The left anterior descending artery is 100% occluded in the proximal portion. 3. The left circumflex is 100% occluded in the proximal portion as well. 4. Right coronary artery is also 100% occluded in the proximal to mid portion. CORONARY BYPASS ANGIOGRAM: 1. The GAY to LAD is patent with good flow in the LAD. 2. The SVG to OM is patent and the stent in the SVG to OM is patent as well. 3. The SVG to the diagonal is also patent. 4. The SVG to RCA has lesion that seems to be eccentric in mid portion and seems to be in the range of 70%. PCI OF THE SVG TO RCA: Anticoagulation was instituted using Angiomax. Subsequently I took multipurpose catheter and the SVG to RCA was engaged. I wired using whisper wire. Subsequently I did direct stenting using 3.5 x 15 mm Xience JEANNE where the stent was positioned under thoracoscopy guidance and deployed under its nominal pressure. The following angiogram showed good angiographic results with good flow. The procedure was completed without any complications. CONCLUSION: 1. Severe triple vessel coronary artery disease with occluded LAD, left circumflex as well as RCA. 2. Patent GAY to LAD. 3. Patent SVG to OM. 4. Patent SVG to diagonal. 5. Severe disease involving the mid-portion of SVG to RCA. 6. Successful stenting of the SVG to RCA using 3.5 x 15 mm Xience JEANNE with good angiographic results. POSTPROCEDURE MANAGEMENT: 1. Dual antiplatelet therapy. 2. Risk factor modification. 3. Follow up with the patient. [facility]
[2016-12-31 12:05] LABS: Glucose,Whole Blood 222 mg/dL (75-99)
--- NOTE | 2016-12-31 13:38 | P.PN ---
Subjective Principal diagnosis: NonSTEMI Is a pleasant 76-year-old female who follows with Dr. Delarosa in the office. She has a known history of coronary artery disease and prior bypass surgery, she also has PAD with prior peripheral stenting. History of hypertension, hyperlipidemia, diabetes, kidney disease. She presented to the hospital with a non-Q-wave myocardial infarction. She was taken to the cardiac catheterization lab yesterday by Dr. Delarosa where she underwent angioplasty with stenting of the SVG to the RCA. Blood pressure this morning 130/50 with a heart rate in the 60s. She denies any chest pain, breathing is stable. She is sitting up in the chair at the time of our examination. BUN 28, creatinine 1.2 Objective - Vital Signs Vital signs: Vital Signs Temp 97.4 F L 12/31/16 12:00 Pulse 67 12/31/16 12:00 Resp 18 12/31/16 12:00 BP 131/58 12/31/16 12:00 Pulse Ox 97 12/31/16 12:00 Intake & Output 12/30/16 12/31/16 12/31/16 18:59 06:59 18:59 Intake Total 548.23 900 200 Output Total 400 1300 Balance 148.23 -400 200 Weight 104.5 kg Intake: IV 548.23 900 Sodium Chloride 0.9% 1, 900 000 ml @ 100 mls/hr IV . Q10H STA Rx#:[id number] Oral 200 Output: Urine 400 1300 Uretheral (Norton) 1300 Other: Voiding Method Bedside Commode Indwelling Catheter Indwelling Catheter # Voids 2 - Exam PHYSICAL EXAMINATION: HEENT: Head is atraumatic, normocephalic. Pupils equal, round. Neck is supple. There is no elevated jugular venous pressure. HEART EXAMINATION: Heart S1, S2 normal. No murmur or gallop heard. CHEST EXAMINATION: Circumflex clear with diminished air entry to bilateral bases. Right groin soft, no evidence of any hematoma. ABDOMEN: Soft, nontender. Bowel sounds are heard. No organomegaly noted. EXTREMITIES: 2+ peripheral pulses with trace evidence of peripheral edema and no calf tenderness noted. NEUROLOGIC patient is awake, alert and oriented -3. . - Labs CBC & Chem 7: 12/31/16 06:00 12/31/16 06:00 Labs: Abnormal Lab Results - Last 24 Hours (Table) 12/30/16 12/31/16 12/31/16 Range/Units 16:44 06:00 06:00 RBC 3.49 L (3.80-5.40) m/uL Hgb 10.8 L (11.4-16.0) gm/dL Hct 33.1 L (34.0-46.0) % Lymphocytes # 0.7 L (1.0-4.8) k/uL Chloride 112 H (98-107) mmol/L Carbon Dioxide 18 L (22-30) mmol/L BUN 28 H (7-17) mg/dL Creatinine 1.20 H (0.52-1.04) mg/dL Glucose 177 H (74-99) mg/dL POC Glucose (mg/dL) 125 H (75-99) mg/dL Triglycerides 197 H (<150) mg/dL HDL Cholesterol 35 L (40-60) mg/dL 12/31/16 12/31/16 Range/Units 06:26 12:01 RBC (3.80-5.40) m/uL Hgb (11.4-16.0) gm/dL Hct (34.0-46.0) % Lymphocytes # (1.0-4.8) k/uL Chloride (98-107) mmol/L Carbon Dioxide (22-30) mmol/L BUN (7-17) mg/dL Creatinine (0.52-1.04) mg/dL Glucose (74-99) mg/dL POC Glucose (mg/dL) 180 H 222 H (75-99) mg/dL Triglycerides (<150) mg/dL HDL Cholesterol (40-60) mg/dL Assessment and Plan Plan: Assessment and plan #1 non-ST elevation myocardial infarction, status post stenting of the saphenous vein graft to the right coronary artery. #2 accelerated hypertension #3 known history of coronary artery disease with prior coronary artery bypass grafting surgery, most recently patient underwent angioplasty with stenting of the SVG to the OM in September of this year. #4 PAD with prior PTCA of the right popliteal and right anterior tibial artery # 5 hypertension #6 hyperlipidemia #7 diabetes #8 acute on chronic renal failure #9 paroxysmal atrial fibrillation Plan We will continue patient on her current medications. Plan is for the patient to possibly be discharged home in the morning if stable. DNP note has been reviewed, I agree with a documented findings and plan of care. Patient was seen and examined.
--- NOTE | 2016-12-31 14:06 | P.PN ---
Subjective Patient is doing well today. She is up in the chair. Objective - Vital Signs Vital signs: Vital Signs Temp 97.4 F L 12/31/16 12:00 Pulse 67 12/31/16 12:00 Resp 18 12/31/16 12:00 BP 131/58 12/31/16 12:00 Pulse Ox 97 12/31/16 12:00 Intake & Output 12/30/16 12/31/16 12/31/16 18:59 06:59 18:59 Intake Total 548.23 900 200 Output Total 400 1300 Balance 148.23 -400 200 Weight 104.5 kg Intake: IV 548.23 900 Sodium Chloride 0.9% 1, 900 000 ml @ 100 mls/hr IV . Q10H STA Rx#:[id number] Oral 200 Output: Urine 400 1300 Uretheral ([place]orton) 1300 Other: Voiding Method Bedside Commode Indwelling Catheter Indwelling Catheter # Voids 2 - Exam General: The patient is awake and alert, in no distress Eye: there is normal conjunctiva bilaterally. Neck: The neck is supple, there is no JVD. Cardiovascular: Normal S1-S2, no S3-S4, no murmurs. Respiratory: Lungs clear to auscultation bilaterally Gastrointestinal: Abdomen is soft, nontender Musculoskeletal: There is no pedal edema. Neurological:. Speech is normal. Skin: Skin is warm and dry - Labs CBC & Chem 7: 12/31/16 06:00 12/31/16 06:00 Labs: Abnormal Lab Results - Last 24 Hours (Table) 12/30/16 12/31/16 12/31/16 Range/Units 16:44 06:00 06:00 RBC 3.49 L (3.80-5.40) m/uL Hgb 10.8 L (11.4-16.0) gm/dL Hct 33.1 L (34.0-46.0) % Lymphocytes # 0.7 L (1.0-4.8) k/uL Chloride 112 H (98-107) mmol/L Carbon Dioxide 18 L (22-30) mmol/L BUN 28 H (7-17) mg/dL Creatinine 1.20 H (0.52-1.04) mg/dL Glucose 177 H (74-99) mg/dL POC Glucose (mg/dL) 125 H (75-99) mg/dL Triglycerides 197 H (<150) mg/dL HDL Cholesterol 35 L (40-60) mg/dL 12/31/16 12/31/16 Range/Units 06:26 12:01 RBC (3.80-5.40) m/uL Hgb (11.4-16.0) gm/dL Hct (34.0-46.0) % Lymphocytes # (1.0-4.8) k/uL Chloride (98-107) mmol/L Carbon Dioxide (22-30) mmol/L BUN (7-17) mg/dL Creatinine (0.52-1.04) mg/dL Glucose (74-99) mg/dL POC Glucose (mg/dL) 180 H 222 H (75-99) mg/dL Triglycerides (<150) mg/dL HDL Cholesterol (40-60) mg/dL Assessment and Plan Plan: 1. Non-ST elevation [place]: Status post left heart catheterization with successful stent placement to SVG to RCA graft using JEANNE. Patient is currently on optimal medical management. Status post recent left heart catheterization with successful stenting of the SVG to obtuse marginal branch using JEANNE in September 2016. Echocardiogram showed preserved ejection fraction and no significant wall motion abnormality. 2. Paroxysmal atrial fibrillation: Heart rate is well controlled. Patient on Eliquis for anticoagulation 3. Coronary artery disease with history of bypass surgery in 2006 4. Uncontrolled type 2 diabetes mellitus: Resume home dose of insulin 5. Acute on chronic stage III B chronic kidney disease Creatinine baseline around 1.7 6. Mixed hyperlipidemia: not at goal. Patient was unable to tolerate statin in the past. Continue nikos 7. Essential hypertension: Blood pressure not well controlled. We'll continue to monitor closely and adjust her regimen accordingly Continue current regimen. Anticipate discharge home possibly tomorrow if cleared by cardiology.
[2016-12-31 14:43] LABS: Hemoglobin A1C 8.2 % (4.2-6.1)
[2016-12-31 17:02] LABS: Glucose,Whole Blood 97 mg/dL (75-99)
[2016-12-31 20:36] LABS: Glucose,Whole Blood 243 mg/dL (75-99)
[2017-01-01 05:44] LABS: Glucose,Whole Blood 87 mg/dL (75-99)
[2017-01-01] MEDS: INSULIN LISPRO (humaLOG) 300 UNIT/3 ML VIAL SQ SCH ×3 (06:31→17:23)
[2017-01-01] MEDS: glipiZIDE 10 MG TAB PO SCH ×2 (06:37→17:27)
[2017-01-01 06:44] LABS: Basophils % (A) 1 %; CH 29.6; CHCM 31.3; Eosinophils # (A) 0.3 k/uL (0-0.7); Eosinophils % (A) 4 %; HCT 31.1 % (34.0-46.0); HDW 2.69; Hypochromasia Slight; Luc # (Auto) 0.22; Luc % (Auto) 3; Lymphocytes # (A) 1.3 k/uL (1.0-4.8); Lymphocytes % (A) 18 %; MCH 30.5 pg (25.0-35.0); MCHC 32.2 g/dL (31.0-37.0); MCV 94.9 fL (80.0-100.0); Mean Platelet Volume 8.1; Monocytes # (A) 0.6 k/uL (0-1.0); Monocytes % (A) 8 %; Neutrophils # (A) 4.7 k/uL (1.3-7.7); Neutrophils % (A) 66 %; RBC 3.27 m/uL (3.80-5.40); RDW 13.4 % (11.5-15.5); WBC 7.1 k/uL (3.8-10.6); WBC (Perox) 7.52
[2017-01-01 06:50] LABS: INR 1.1 (<1.1); Prothrombin Time 11.3 sec (9.0-12.0)
[2017-01-01 07:00] LABS: Calcium 8.9 mg/dL (8.4-10.2); Magnesium 1.9 mg/dL (1.6-2.3); Potassium 4.7 mmol/L (3.5-5.1)
[2017-01-01] MEDS: B COMPLEX-VIT C-VIT E-ZINC 1 EACH TAB PO SCH (08:41)
[2017-01-01] MEDS: CLOPIDOGREL 75 MG TAB PO SCH (08:41)
[2017-01-01] MEDS: ISOSORBIDE MONONITRATE ER 60 MG TAB.ER.24H PO SCH (08:41)
[2017-01-01] MEDS: METOPROLOL TARTRATE 50 MG TAB PO SCH (08:42)
[2017-01-01] MEDS: EZETIMIBE 10 MG TAB PO SCH (08:42)
[2017-01-01] MEDS: CHOLECALCIFEROL 1,000 UNIT TAB PO SCH (08:42)
[2017-01-01] MEDS: ASPIRIN 325 MG TAB PO SCH (08:42)
[2017-01-01] MEDS: INSULIN GLARGINE 100 UNIT/ML 10 ML VIAL SQ SCH (08:43)
[2017-01-01] MEDS: APIXABAN 2.5 MG TABLET PO SCH (08:43)
[2017-01-01] MEDS: LOSARTAN 25 MG TAB PO SCH (08:43)
[2017-01-01 10:24] VITALS: RESP 18
[2017-01-01] MEDS ORDERED: ASPIRIN 81 MG CHEW PO SCH (11:23)
[2017-01-01 11:40] LABS: Glucose,Whole Blood 185 mg/dL (75-99)
[2017-01-01 16:33] LABS: Glucose,Whole Blood 120 mg/dL (75-99)
[2017-01-01 16:53] VITALS: BP 149/65; PULSE 64; TEMP 97.8
--- NOTE | 2017-01-01 18:00 | P.DS ---
Providers Date of admission: 12/30/16 01:07 Expected date of discharge: 01/01/17 Attending physician: Kathe Brizuela Consults: 12/30/16 01:07 Consult Physician Urgent Consulting Provider: Kris Hoover Consult Reason/Comments: cp Do you want consulting provider notified?: Yes 12/30/16 14:33 Consult Physician Routine Consulting Provider: [facility] Consult Reason/Comments: Post Interventional patient Do you want consulting provider notified?: Already Contacted Primary care physician: Saloni [facility] Course: 1. Non-ST elevation AL: Status post left heart catheterization with successful stent placement to SVG to RCA graft using JEANNE. Patient is currently on optimal medical management. Status post recent left heart catheterization with successful stenting of the SVG to obtuse marginal branch using JEANNE in September 2016. Echocardiogram showed preserved ejection fraction and no significant wall motion abnormality. 2. Paroxysmal atrial fibrillation: Heart rate is well controlled. Patient on Eliquis for anticoagulation 3. Coronary artery disease with history of bypass surgery in 2006 4. Uncontrolled type 2 diabetes mellitus: Resume home dose of insulin 5. Acute on chronic stage III B chronic kidney disease Creatinine baseline around 1.7 6. Mixed hyperlipidemia: not at goal. Patient was unable to tolerate statin in the past. 7. Essential hypertension: Blood pressure well controlled. Patient Condition at Discharge: Serious Plan - Discharge Summary New Discharge Prescriptions: Continue Cholecalciferol [Vitamin D3] 5,000 units PO DAILY glipiZIDE [Glucotrol XL] 20 mg PO QAM Metoprolol Tartrate [Lopressor] 100 mg PO BID Clopidogrel [Plavix] 75 mg PO DAILY #30 tab Insulin Glargine,Hum.rec.anlog [Touephraim [place]] 17 unit SQ QAM Nitroglycerin Sl Tabs [Nitrostat] 0.4 mg SUBLINGUAL ONCE PRN PRN Reason: Chest Pain Vitamin B Complex 1 cap PO DAILY Apixaban [Eliquis] 2.5 mg PO BID #60 tablet Aspirin 81 mg PO DAILY #30 chew Ezetimibe [Zetia] 10 mg PO DAILY #30 tab Isosorbide Mononitrate ER [Imdur] 60 mg PO DAILY #30 tab.er.24h Losartan [Cozaar] 25 mg PO DAILY Discharge Medication List Cholecalciferol [Vitamin D3] 5,000 units PO DAILY 01/06/14 [History] Metoprolol Tartrate [Lopressor] 100 mg PO BID 01/06/14 [History] glipiZIDE [Glucotrol XL] 20 mg PO QAM 01/06/14 [History] Clopidogrel [Plavix] 75 mg PO DAILY #30 tab 02/04/14 [Rx] Insulin Glargine,Hum.rec.anlog [Toujeo Solostar] 17 unit SQ QAM 04/29/16 [ History] Nitroglycerin Sl Tabs [Nitrostat] 0.4 mg SUBLINGUAL ONCE PRN 10/16/16 [History] Vitamin B Complex 1 cap PO DAILY 10/16/16 [History] Apixaban [Eliquis] 2.5 mg PO BID #60 tablet 10/24/16 [Rx] Aspirin 81 mg PO DAILY #30 chew 10/24/16 [Rx] Ezetimibe [Zetia] 10 mg PO DAILY #30 tab 10/24/16 [Rx] Isosorbide Mononitrate ER [Imdur] 60 mg PO DAILY #30 tab.er.24h 10/24/16 [Rx] Losartan [Cozaar] 25 mg PO DAILY 12/30/16 [History] Follow up Appointment(s)/Referral(s): Saloni Lloyd MD [Primary Care Provider] - 1-2 days Discharge Disposition: HOME SELF-CARE
--- NOTE | 2017-01-02 17:12 | PN ---
Mrs. Donis is a 76-year-old female who is status coronary artery bypass grafting, peripheral vascular disease, who presented with non-STEMI, underwent cardiac catheterization and stenting with a saphenous vein graft to the right coronary artery. She is doing quite well this morning, denying any symptoms of chest pain. She denies any dizziness or palpitations. She denies any nausea. She is ambulating without difficulty. She continues to be at this time on Eliquis 2.5 mg twice a day, aspirin, clonidine patch, Plavix 75 mg daily, Zetia 10 mg daily, glipizide 10 mg twice a day, insulin, Losartan 25 mg daily, isosorbide mononitrate 60 mg daily, metoprolol tartrate 100 mg twice a day. PHYSICAL EXAMINATION: Blood pressure 129/59 with a heart rate of 60. LUNGS: Clear. HEART: Regular rate and rhythm. S1, S2. No S3. With systolic murmur. No diastolic murmur. ABDOMEN: Soft, obese, non-tender. EXTREMITIES: No edema. Lab data revealed BUN and creatinine of 39 and 1.67, potassium of 4.7, hemoglobin of 10. IMPRESSION: 1. Status post stenting of the saphenous vein graft to the right coronary artery in the setting of [id number] myocardial infarction. 2. History of coronary artery disease, status post coronary artery bypass grafting. 3. Paroxysmal atrial fibrillation. 4. Diabetes. 5. Hyperlipidemia. 6. Hypertension. 7. Renal failure. RECOMMENDATIONS: From the cardiac standpoint, I will cut down the dose of her aspirin, continue the rest of her medical regimen, increase her level of activity. She may be able to be discharged home soon. Her renal function can be followed as an outpatient. SUZANNE
== END 2017-01-01 18:47 | disposition home or self-care (01) | DRG 246 ==
LOC: EC 01:04 → 6SEL 01:07
PROVIDERS: ADMIT Internal Medicine; ATTEND Internal Medicine
PROC: B2111ZZ Fluoroscopy of Multiple Coronary Arteries using Low Osmolar Contrast (ICD-10-PCS; 2016-12-30)
PROC: B2181ZZ Fluoroscopy of Left Internal Mammary Bypass Graft using Low Osmolar Contrast (ICD-10-PCS; 2016-12-30)
PROC: B2131ZZ Fluoroscopy of Multiple Coronary Artery Bypass Grafts using Low Osmolar Contrast (ICD-10-PCS; 2016-12-30)
PROC: 027034Z Dilation of Coronary Artery, One Artery with Drug-eluting Intraluminal Device, Percutaneous Approach (ICD-10-PCS; principal; 2016-12-30 13:19)
PROC: 4A023N7 Measurement of Cardiac Sampling and Pressure, Left Heart, Percutaneous Approach (ICD-10-PCS; 2016-12-30 13:19)
DX: I21.4 Non-ST elevation (NSTEMI) myocardial infarction (principal); I50.33 Acute on chronic diastolic (congestive) heart failure; N17.9 Acute kidney failure, unspecified; I13.0 Hypertensive heart and chronic kidney disease with heart failure and stage 1 through stage 4 chronic kidney disease, or unspecified chronic kidney disease; I48.0 Paroxysmal atrial fibrillation; E11.22 Type 2 diabetes mellitus with diabetic chronic kidney disease; N18.3 Chronic kidney disease, stage 3 (moderate); E78.2 Mixed hyperlipidemia; I25.10 Atherosclerotic heart disease of native coronary artery without angina pectoris; E11.65 Type 2 diabetes mellitus with hyperglycemia; I25.82 Chronic total occlusion of coronary artery; I25.810 Atherosclerosis of coronary artery bypass graft(s) without angina pectoris; I25.2 Old myocardial infarction; E11.51 Type 2 diabetes mellitus with diabetic peripheral angiopathy without gangrene; E66.9 Obesity, unspecified; S00.10XA Contusion of unspecified eyelid and periocular area, initial encounter; Z79.899 Other long term (current) drug therapy; Z96.651 Presence of right artificial knee joint; Z79.4 Long term (current) use of insulin; Z90.49 Acquired absence of other specified parts of digestive tract; Z79.82 Long term (current) use of aspirin; Z79.02 Long term (current) use of antithrombotics/antiplatelets; Z79.01 Long term (current) use of anticoagulants; Z95.5 Presence of coronary angioplasty implant and graft; Z95.820 Peripheral vascular angioplasty status with implants and grafts; Z95.1 Presence of aortocoronary bypass graft; W19.XXXA Unspecified fall, initial encounter
CPT/HCPCS: 36415; 71020; 80048; 80053; 80061; 82550; 82553; 83036; 83690; 83735; 84484; 85025; 85610; 85730; 93005; 93306; 93455; 94760; 96361; 96365; 96375; 96376; 99291

== ENCOUNTER → 2017-01-17 | Outpatient (CLI) | payer MEDICARE ==
--- NOTE | 2017-01-17 16:50 | US ---
EXAMINATION TYPE: US kidneys/renal and bladder DATE OF EXAM: 01/17/2017 COMPARISON: NONE CLINICAL HISTORY: N28.9 ACUTE CHR KIDNEY DISEASE. EXAM MEASUREMENTS: Right Kidney: 9.4 x 4.1 x 5.6 cm Left Kidney: 9.2 x 4.2 x 5.3 cm limited exam due to body habitus and bowel gas Right Kidney: limited views appear wnl Left Kidney: decreased corticomedullary differentation Bladder: elderly patient did not prep for exam but states she always feel full There is no evidence for hydronephrosis at this point in time. No nephrolithiasis is seen. No doug s are identified. The urinary bladder is anechoic. Bilateral ureteral jets are not seen. IMPRESSION: 1. Correlate for medical renal disease.
== END | disposition home or self-care (01) ==
LOC: RADUSWWP 15:15
PROVIDERS: ATTEND Internal Medicine Nephrology
DX: N28.9 Disorder of kidney and ureter, unspecified (principal)
CPT/HCPCS: 76770